=== PATIENT | female | born 1930 | race Caucasian/White ===

== ENCOUNTER 2017-06-17 15:54 | Inpatient (IN) | payer OTHER ==
[~2017-06-17] VITALS: Ht 160 cm; Wt 54.4 kg
[~2017-06-17 15:54] MED LIST: ADVAIR 250-501 EACH INH; ALLERGY MEDICAT25 MG PO; AMLODIPINE BESY10 MG PO; ASPIRIN81 M2 PO; BEANO300 UNIT PO; DAIRY DIGES9000 UNIT PO; FIBER625 MG PO; GABAPENTIN 100100 MG PO; LEVAQUIN 250 M250 MG PO; LIPITOR10 MG PO; METFORMIN HCL500 MG PO; MOBIC15 MG PO; MUCUS RELIEF400 MG PO; NITROGLYCERIN0.4 MG SUBLING; OCUVITE EYE +1 EACH PO; PROAIR RESPICL90 MCG INH; SINGULAIR 10 MG10 M1 PO; SYNTHROID100 MCG PO; TOPROL XL25 MG PO; VASOTEC5 MG PO; VICODIN ES 7.51 EACH PO; ZANTAC 150MG T150 MG PO
[2017-06-17 15:58] VITALS: BP 154/55
[2017-06-17] MEDS ORDERED: ELIQUIS2.5 MG PO (16:02)
[2017-06-17 16:25] LABS: ABSOLUTE BASOPHILS 0.1 thou/uL (0.0-0.2); ABSOLUTE EOSINOPHILS 0.1 thou/uL (0.0-0.7); ABSOLUTE LYMPHOCYTES 0.7 thou/uL (0.8-5.3); ABSOLUTE MONOCYTES 0.4 thou/uL (0.0-1.2); ABSOLUTE NEUTROPHILS 5.8 thou/uL (1.6-8.1); BASOPHILS 0.8 %; EOSINOPHILS 1.7 %; HEMATOCRIT 30.3 % (37.0-47.0); LYMPHOCYTES 10.4 %; MCH 29.6 pg (26.0-34.0); MCV 89.5 fL (80.0-100.0); MONOCYTES 5.3 %; MPV 7.3 fl. (7.2-11.1); NUCLEATED RBCS 0 /100WBC; PLATELET COUNT* 213 thou/uL (150-400); POLYS 81.8 %; RBC 3.39 mil/uL (4.20-5.00); RDW-CV 14.4 % (10.5-14.5); WBC 7.1 thou/uL (4.0-11.0)
[2017-06-17 16:38] LABS: ANION GAP 2 mmol/L (7-16); BUN 20 mg/dL (7-18); CALCIUM 8.5 mg/dL (8.5-10.1); CHLORIDE 96 mmol/L (98-107); CO2 36 mmol/L (21-32); CREATININE 0.8 mg/dL (0.6-1.3); GLUCOSE 123 mg/dL (70-99); POTASSIUM 4.2 mmol/L (3.5-5.1); SODIUM 134 mmol/L (136-145)
[2017-06-17 16:49] LABS: ALBUMIN 3.6 g/dL (3.4-5.0); ALKALINE PHOSPHATASE 45 U/L (46-116); LIPASE 86 U/L (73-393); NT-PRO BRAIN NAT PEPTIDE 3721 pg/mL (<300); SGOT 18 U/L (15-37); SGPT 13 U/L (30-65); TOTAL BILIRUBIN 0.4 mg/dL (<0.1-1.0); TOTAL PROTEIN 6.9 g/dL (6.4-8.2); TROPONIN-I LEVEL <0.06 ng/mL (<0.06)
[2017-06-17 16:50] LABS: INFLUENZA A ANTIGEN None Detected (None Detect); INFLUENZA B ANTIGEN None Detected (None Detect)
[2017-06-17 16:50] LABS: INR 1.1
[2017-06-17 19:40] VITALS: BP 135/46
[2017-06-17 19:44] VITALS: BP 131/41
[2017-06-18] VITALS: BP 118/48
[2017-06-18 04:00] VITALS: BP 114/53
[2017-06-18 09:31] VITALS: BP 135/53
[2017-06-18 12:05] VITALS: BP 130/42
[2017-06-18 15:43] VITALS: BP 136/45
[2017-06-18 19:35] VITALS: BP 136/54
[2017-06-19] VITALS: BP 110/35
[2017-06-19 04:22] VITALS: BP 118/64
[2017-06-19 07:16] LABS: HEMATOCRIT 29.1 % (37.0-47.0); HEMOGLOBIN 9.7 gm/dL (12.0-15.0); MCH 29.9 pg (26.0-34.0); MCHC 33.5 g/dL (28.0-37.0); MCV 89.5 fL (80.0-100.0); MPV 7.3 fl. (7.2-11.1); NUCLEATED RBCS 0 /100WBC; PLATELET COUNT* 204 thou/uL (150-400); RBC 3.26 mil/uL (4.20-5.00); RDW-CV 14.1 % (10.5-14.5); WBC 7.7 thou/uL (4.0-11.0)
[2017-06-19 07:34] LABS: ABSOLUTE LYMPHOCYTES 0.7 thou/uL (0.8-5.3); ABSOLUTE MONOCYTES 0.1 thou/uL (0.0-1.2); ABSOLUTE NEUTROPHILS 6.9 thou/uL (1.6-8.1); CALCIUM 8.5 mg/dL (8.5-10.1); CREATININE 0.8 mg/dL (0.6-1.3); PLATELET ESTIMATE ADEQUATE; POTASSIUM 4.3 mmol/L (3.5-5.1)
[2017-06-19 08:00] VITALS: BP 142/72
[2017-06-19] MEDS ORDERED: PREDNISONE 10 M10 MG PO (09:15)
[2017-06-19 11:36] VITALS: BP 182/65
[2017-06-19 14:20] VITALS: BP 182/65
[2017-07-16] MEDS ORDERED: PREDNISONE 10 M10 MG PO (14:37)
== END 2017-06-19 15:19 | disposition home or self-care (01) | DRG 190 ==
LOC: M.ERS 15:54 → M.2W 17:16 → M.TBA-ER 17:16 → M.2W 19:43
PROVIDERS: Emergency Medicine; ADMIT Internal Medicine
DX: J44.1 Chronic obstructive pulmonary disease with (acute) exacerbation (principal); J12.9 Viral pneumonia, unspecified; J96.10 Chronic respiratory failure, unspecified whether with hypoxia or hypercapnia; E11.9 Type 2 diabetes mellitus without complications; E78.00 Pure hypercholesterolemia, unspecified; I10 Essential (primary) hypertension; K21.9 Gastro-esophageal reflux disease without esophagitis; I48.91 Unspecified atrial fibrillation; Z88.0 Allergy status to penicillin; Z88.2 Allergy status to sulfonamides; Z79.82 Long term (current) use of aspirin; Z79.899 Other long term (current) drug therapy; Z87.891 Personal history of nicotine dependence

== ENCOUNTER 2017-07-03 10:24 | Inpatient (IN) | payer OTHER ==
[~2017-07-03] VITALS: Ht 160 cm; Wt 56.7 kg
[~2017-07-03 10:24] MED LIST changes: +ELIQUIS2.5 MG PO; +PREDNISONE 10 M10 MG PO
[2017-07-03 10:43] VITALS: BP 153/46
[2017-07-03 10:46] LABS: HEMATOCRIT 29.3 % (37.0-47.0); HEMOGLOBIN 9.9 gm/dL (12.0-15.0); MCH 30.4 pg (26.0-34.0); MCHC 33.8 g/dL (28.0-37.0); MPV 6.9 fl. (7.2-11.1); NUCLEATED RBCS 0 /100WBC; PLATELET COUNT* 247 thou/uL (150-400); RBC 3.25 mil/uL (4.20-5.00); RDW-CV 14.9 % (10.5-14.5); WBC 14.1 thou/uL (4.0-11.0)
[2017-07-03 10:55] LABS: ANION GAP 5 mmol/L (7-16); BUN 23 mg/dL (7-18); CALCIUM 8.6 mg/dL (8.5-10.1); CHLORIDE 90 mmol/L (98-107); CO2 37 mmol/L (21-32); CREATININE 0.9 mg/dL (0.6-1.3); GLUCOSE 120 mg/dL (70-99); POTASSIUM 4.2 mmol/L (3.5-5.1); SODIUM 132 mmol/L (136-145)
[2017-07-03 11:03] LABS: APTT 30.6 Seconds (25.0-31.3); INR 1.1; PROTIME 10.7 Seconds (9.20-11.50)
[2017-07-03 11:06] LABS: ALBUMIN 3.3 g/dL (3.4-5.0); ALKALINE PHOSPHATASE 53 U/L (46-116); NT-PRO BRAIN NAT PEPTIDE 7362 pg/mL (<300); SGOT 16 U/L (15-37); SGPT 20 U/L (30-65); TOTAL BILIRUBIN 0.6 mg/dL (<0.1-1.0); TOTAL PROTEIN 6.8 g/dL (6.4-8.2); TROPONIN-I LEVEL <0.06 ng/mL (<0.06)
[2017-07-03 11:20] LABS: ABSOLUTE BASOPHILS 0.1 thou/uL (0.0-0.2); ABSOLUTE LYMPHOCYTES 0.8 thou/uL (0.8-5.3); ABSOLUTE MONOCYTES 0.7 thou/uL (0.0-1.2); ABSOLUTE NEUTROPHILS 12.4 thou/uL (1.6-8.1); PLATELET ESTIMATE ADEQUATE
[2017-07-03] MEDS ORDERED: HYDRALAZINE 10M10 MG PO (11:30)
[2017-07-03] MEDS ORDERED: PACERONE 200 M200 M1 PO (11:30)
[2017-07-03 11:41] LABS: INFLUENZA A ANTIGEN None Detected (None Detect); INFLUENZA B ANTIGEN None Detected (None Detect)
[2017-07-03 12:10] VITALS: BP 142/51
[2017-07-03 12:30] VITALS: BP 156/52
--- NOTE | 2017-07-03 13:41 | NUR ---
PT ADMITTED TO ROOM 229 AROUND 1230. REFER TO ASSESSMENT. FAMILY AT BEDSIDE. PT REQUIRING 6L OXYGEN/NC TO MAINTAIN SATS AT 92%. PT WEARS 2L AT HOME. TELE SB WITH RATE IN THE 40'S. IT'S REPORTED THIS IS CLOSE TO BASELINE FOR PT. CARDIOLOGY CONSULTED. NO OTHER CONERNS AT THIS TIME. CLWR. WCTM.
[2017-07-03 15:33] VITALS: BP 139/47
--- NOTE | 2017-07-03 16:10 | EKG ---
[place] [address] ELECTROCARDIOGRAM REPORT Name: AMNA DUENAS Room: [address] ADM IN .R.#: [id number] Admission: 07/03/17 Attend Phys: Nkechi Jerez Discharge: Date of : [birth year] Report #: [id number] THIS REPORT FOR: //name// [facility] ED Test Date: 2017-07-03 Test Time: 10:48:53 Pat Name: AMNA DUENAS Department: Room: [facility] Gender: F Scale Agent: STUDENT : 1930 Requested By: Hua Ambrocio Order Number: [id number] MD: Prateek Mckeon Measurements Intervals [place] Rate: 43 P: -40 MD: 212 QRS: -18 QRSD: 109 T: 82 QT: 507 QTc: 429 Interpretive Statements Sinus bradycardia Borderline left axis deviation septal infarct, age indeterminate Compared to ECG 06/17/2017 16:27:30 no change Electronically Signed On 07-03-2017 16:10:31 INCLUSION SPECIAL EDUCATION TEACHER by Prateek Mckeon [email or web address] <ELECTRONICALLY SIGNED> By: Prateek Mckeon MD, FAC 07/03/17 1610 1048 1048 Prateek Mckeon MD, [facility] /EPI
--- NOTE | 2017-07-03 17:45 | NUR ---
PT NOT PROGRESSING TOWARDS GOALS. NEW ADMIT. ABLE TO TITRATE OXYGEN TO 4L TO MAINTAIN SATS >92%. BIPAP AT BEDSIDE IF NEEDED WHILE RESTING. PT GIVEN IV LASIX THIS EVENING. TELE CONTINUES SB. NO OTHER CONCERNS AT THIS TIME. CLWR. WCTM.
[2017-07-03 20:00] VITALS: BP 146/48
[2017-07-04] VITALS: BP 126/52
--- NOTE | 2017-07-04 02:47 | NUR ---
PT ALERT ORIENTED. PT CALLS OUT FREQUENTLY FOR VARIOUS THINGS. HYDROCODONE GIVEN ONCE. THROAT LOZENGES GIVEN PER PT REQUESTS. UP TO BR WITH STANDBY ASSSIST. TELEMETRY SHOWS SB. O2 AT 4 LITERS NC. WILL CONTINUE TO MONITOR.
[2017-07-04 04:00] VITALS: BP 129/51
[2017-07-04 05:42] LABS: HEMATOCRIT 24.9 % (37.0-47.0); HEMOGLOBIN 8.3 gm/dL (12.0-15.0); MCH 29.7 pg (26.0-34.0); MCHC 33.1 g/dL (28.0-37.0); MCV 89.5 fL (80.0-100.0); MPV 7.1 fl. (7.2-11.1); RBC 2.78 mil/uL (4.20-5.00); RDW-CV 14.9 % (10.5-14.5); WBC 19.9 thou/uL (4.0-11.0)
[2017-07-04 07:21] LABS: CREATININE 0.9 mg/dL (0.6-1.3); MAGNESIUM 1.9 mg/dL (1.8-2.4)
--- NOTE | 2017-07-04 07:36 | CON ---
[address] [address] CONSULTATION Name: AMNA DUENAS Room: [address] IN M.R.#: [id number] Admission: 07/03/17 Attend Phys: Nkechi Jerez Discharge: Date of : [birth year] Report #: [id number] THIS REPORT FOR: //name// CC: Hilario Monterroso MD [facility] Dr. Shaikh Emerita Burgos INDICATION: Shortness of breath and possible heart failure. HISTORY OF PRESENT ILLNESS: The patient is a very pleasant 87-year-old white female who is hospitalized with acute onset shortness of breath. This patient states she has been gradually weakening over the past week. She does have some COPD and was recently put on O2. This morning she woke up short of breath at rest and with activity. She had some unassociated right arm pain that was not worse with activity. Her initial cardiac enzyme was unremarkable. Subsequent cardiac enzymes were unremarkable. EKG shows sinus bradycardia with no significant ST-segment abnormalities. NT-proBNP was elevated consistent with acute heart failure. Chest x-ray suggested possible patchy pneumonia. On laboratory evaluation, the white blood cell count was minimally elevated. She has a cough, but it is not productive. She had pneumonia in March with productive cough. She denies fevers. She is not having nausea or vomiting. She denies orthopnea. She has a history of coronary artery disease with intervention remotely. She had stents in 2006 in the setting of a myocardial infarction. Prior to that, she had had episodes of stenting as well. She has had no recent intervention. Echocardiogram in March of this year showed normal LV systolic function and evidence of diastolic dysfunction. PAST MEDICAL HISTORY: 1. Coronary artery disease with percutaneous coronary intervention on multiple occasions, most recently in 2006. 2. Myocardial infarction in 2006. 3. Carotid vascular disease. 4. COPD. 5. Diabetes. 6. Hypertension. 7. Hyperlipidemia. 8. Hypothyroidism. 9. Subclavian artery stenosis. PAST SURGICAL HISTORY: 1. Cholecystectomy. 2. Nephrolithiasis. 3. [place] [address] CONSULTATION Name: AMNA DUENAS Room: [address]#: [id number] Admission: 07/03/17 Attend Phys: Nkechi Jerez Discharge: Date of : [birth year] Report #: [id number] FAMILY HISTORY: Noncontributory. SOCIAL HISTORY: The patient quit smoking in 1991. She does not drink alcohol. ALLERGIES: PENICILLINS AND SULFA. HOME MEDICATIONS: Albuterol inhaler 2 puffs q.i.d. p.r.n., amiodarone 200 mg b.i.d., amlodipine 10 mg daily, Eliquis 2.5 mg b.i.d., enteric coated aspirin 81 mg daily, atorvastatin 10 mg at bedtime, fiber tablet p.r.n., Benadryl p.r.n., enalapril 20 mg b.i.d., Advair 250/50 one puff b.i.d., gabapentin 100 mg at bedtime, guaifenesin 400 mg p.r.n., Apresoline 10 mg b.i.d. p.r.n., Lactase tablet p.r.n., Synthroid 100 mcg daily, meloxicam ____ mg daily, metformin 500 mg daily, metoprolol succinate 25 mg b.i.d., Singulair 10 mg daily, Ocuvite eye medicine one tablet daily, Nitrostat p.r.n., prednisone 40 mg daily and Zantac 150 mg b.i.d. REVIEW OF SYSTEMS: GENERAL: She denies convulsions, seizures or focal paralysis. She had some mild generalized weakness. RESPIRATORY: She has a cough that is nonproductive. She reports history of COPD. CARDIOVASCULAR: Shortness of breath and orthopnea without paroxysmal nocturnal dyspnea. She denies edema. ENDOCRINE: She has type 2 diabetes mellitus. She has hypothyroidism. GASTROINTESTINAL: No vomiting, melena, hematochezia, jaundice or hepatitis. GENITOURINARY: No dysuria or hematuria. HEMATOLOGIC AND LYMPHATIC: No history of bleeding disorder or cancer. She does have a history of anemia. ALLERGY AND IMMUNOLOGIC: She has medical allergies outlined above. PSYCHIATRIC: No depression or anxiety. 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 SKIN: No recent rashes, hives or chronic skin conditions. EYES: She does wear glasses. She has no acute loss in vision. EARS, NOSE, MOUTH AND THROAT: She denies epistaxis. She does have decreased hearing. PHYSICAL EXAMINATION: VITAL SIGNS: Blood pressure 139/47, pulse 46 and regular. GENERAL: This is a pleasant elderly female in no distress. Mood and affect appropriate. HEENT: The patient's extraocular muscles intact. Mucous membranes are moist. O2 nasal cannula in place. NECK: Examination of the neck shows no jugular venous distention. There are no carotid bruits. CHEST: Examination of the chest reveals occasional rhonchi. Breath sounds [facility] [address] [place] [address] CONSULTATION Name: AMNA DUENAS Room: [address] IN [facility]#: [id number] Admission: 07/03/17 Attend Phys: Nkechi Jerez Discharge: Date of : [birth year] Report #: [id number]. CARDIAC: Exam reveals a regular rhythm, bradycardic without a gallop. There is a soft grade 1/6 systolic ejection murmur. ABDOMEN: Examination of the abdomen reveals normal bowel sounds. The abdomen is soft and nontender. EXTREMITIES: Examination of the extremities shows no edema. Peripheral pulses 1-2+ and palpable. SKIN: Warm and dry. IMAGING: A 12-lead EKG shows sinus bradycardia with no significant ST or T-wave abnormality. LABORATORY EVALUATION: Shows unremarkable cardiac enzymes x 2 sets. NT-proBNP is elevated consistent with heart failure. IMPRESSION AND RECOMMENDATIONS: 1. Acute on chronic diastolic heart failure. Recommend diuresis with IV Lasix. We will follow I's and O's closely and daily labs. 2. Coronary artery disease without significant symptoms to suggest acute coronary syndrome. No adjustments in medications with the exception of discontinuing beta maria dolores secondary to bradycardia. 3. History of paroxysmal atrial fibrillation. We will decrease the amiodarone to 200 mg daily and follow clinically. Continue Eliquis. 4. Hypertension. Blood pressure adequately controlled presently. We will follow clinically. 5. Hyperlipidemia. Continue atorvastatin at current dose. 6. Chronic obstructive pulmonary disease per primary physician. 7. Possible pneumonia per primary. <ELECTRONICALLY SIGNED> By: Evens Fuentes MD, [facility] 07/04/17 0736 1646 [id number] Oaklandedouard Fuentes MD, [facility] /nt
[2017-07-04 08:09] VITALS: BP 148/57
--- NOTE | 2017-07-04 09:42 | NUR ---
ASSUMED CARE OF PT THIS AM AROUND 0715- METER REPAIRER HELPER IN PLACE ORDERED, TRACING SB WITH 1ST DEGREE- UPON ASSESSMENT PT NOTED TO BE RESTING IN BED- PT A&O X3 WITH FORGETFULLNESS NOTED- CONTINENT OF BOWEL AND BLADDER- ASSIST X1 WITH TRANSFERS- EXPIRATORY WHEEZING NOTED, LABORED BREATHING NOTED AT REST- VSS, O2 SAT 94% ON 4L VIA NC-ABDOMEN SOFT/ROUND/NON-TENDER, BS X4 QUADS- LAST BM REPORTED 07/02/17- IV NOTED TO LEFT FA INTACT AND SL- IV ABT GIVEN THIS AM PRESCIBED- 1X DOSE 40MG LASIX GIVEN PRESCIBED THIS AM- BS MONIOTORED INDICATED-PT REPORTS PAIN 09/18 TO BACK POST TRANSFER TO BED- PRN HYDROCODONE GIVEN THIS AM AT 0900- PT REPORTS MEDICATION TO BE EFFECTIVE- CALL LIGHT AND PERSONAL BELONGINGS WITH IN REACH- HOURLY ROUNDS IN PLACE R/T SAFETY/NEEDS- ALL NEEDS MET AT THIS TIME-WCTM
[2017-07-04 11:43] VITALS: BP 135/52
[2017-07-04 15:43] VITALS: BP 140/52
--- NOTE | 2017-07-04 16:32 | NUR ---
MET WITH PT AND GRANDDTR/JENNIFER. JENNIFER STATED THAT PT'S SPOUSE HAS 'DEMENTIA' AND THAT PT'S SON/GREER IS THE DPOA. HE IS ON HIS WAY FROM [place] TO SEE PT. SHE CHECKED WITH HIM AND SAID CM COULD CALL HIM. BRIEFLY TALKED WITH PT SHE WAS ON A BIPAP. DR RICO HAD ASKED THAT CM TALK WITH HER ABOUT HOSPICE. PT OPEN TO THAT DISCUSSION AND AWARE OF WHAT HOSPICE WAS. WANTS HER SON AND SPOUSE HERE FOR FURTHER TALK. PT LIVES WITH SPOUSE AND DTR/ARABELLA. SHE HAS HAD INCREASED PROBLEMS MANAGING THE LAST FEW DAYS. WEARS HOME O2 AND NEB THRU [facility], USES CANE. PT THIN AND FRAIL APPEARING. SHE HAS HAD HH WITH [facility] IN THE PAST. CALLED AND SPOKE WITH SON/GREER [phone]. DISCUSSED POC, HOSPICE EVAL AND POSSIBLE ALTERNATE LIVING SITUATION. HE IS ON HIS WAY HERE FROM [place] AND PLANS TO STAY UNTIL CAN ARRANGE A DIFFERENT LIVING SITUATION FOR BOTH HIS PARENTS. HE IS LOOKING INTO ASSISTED LIVING AND HAS APPT SET UP. DISCUSSED POSSIBLE HOSPICE VISIT WITH PROVIDER AND DISCUSSION, HE IS AVAILABLE TO DO THAT OVER THE WEEKEND, HAD NO PREFERENCE. CALLED AND SET UP TENTATIVE MEETING WITH [facility] TOMORROW AFTERNOON. WILL MEET WITH SON IN HOSPITAL TOMORROW TO CONFIRM A TIMEFRAME AND FOLLOW
--- NOTE | 2017-07-04 17:51 | NUR ---
PT CURRENLTY RESTING IN BED- COMMERCIAL MANAGEMENT ACCOUNTANT IN PLACE ORDERED, TRACING SR- BS MONIOTORED ORDERED-PT UP TO BED SIDE CHAIR WITH MEALS, FAIR PO INTAKE NOTED WITH MEALS THIS SHIFT- SOA NOTED WITH EXERTION- IV NOTED TO RIGHT FA INTACT AND SL- MRSA SWAB COLLECTED AND SENT TO LAB, RESULTS PENDING AT THIS TIME- PULMONARY CONSULT INTIATED PER R/T BLOOD TINGED SPUTUM NOTED- XARELTO ON HOLD- BIPAP EDUCATION GIVEN, PT NOTED TO TAKE SMALL NAP THIS AFTERNOON AND TOLERATED OKAY- PT REPORTS TO TRY LONGER AT HS- PT DENIES ANY C/O PAIN/DISCOMFORT AT THIS TIME- CALL LIGHT AND PERSONAL BELONGINGS WITH IN REACH- ALL NEEDS MET AT THIS TIME-WCTM
[2017-07-04 20:00] VITALS: BP 157/67
[2017-07-05 00:22] VITALS: BP 127/42
[2017-07-05 04:00] VITALS: BP 168/82
--- NOTE | 2017-07-05 04:29 | NUR ---
ASSUMED CARE OF PT AT 1930, NURSING ASSESSMENT COMPLETED AT START OF SHIFT, PT ON TELE MONITOR TRACING SINUS RHYTHM. PT DENIES CHEST PAIN THIS SHIFT, FALL PRECAUTIONS IN PLACE, PT ON 4L O2 AT START OF SHIFT, PT TOLERATED BIPAP FOR APPROX 1 HOUR THIS SHIFT. HOURLY ROUNDING COMPLETED. AT 0400, PT VOICED SOA AFTER GETTING BACK IN BED FROM USING BEDSIDE COMMODE. PT O2 SAT IN LOW 80'S. O2 INCREASED TO 5L NC AND O2 SAT INCREASED TO 92%. PT HOB ELEVATED TO 35 DEGREES. CALL LIGHT WITHIN REACH. NO FALLS THIS SHIFT.
[2017-07-05 05:20] LABS: BE 11.7 mmol/L (-2 to +3); HCO3 37.5 mmol/L (22.0-26.0); pH 7.438 (7.340-7.450)
[2017-07-05 05:23] LABS: PCO2 56.8 mmHg (35.0-45.0)
[2017-07-05 08:04] VITALS: BP 140/73
--- NOTE | 2017-07-05 10:07 | NUR ---
ASSUMED CARE OF PT THIS AM AROUND 0715- MINESWEEPING OFFICER IN PLACE ORDERED, TRACING A-FIB FOR SHORT TIME THIS AM STARTING AROUND 0700, EKG OBTAINED WITH PT NOTED TO BE SR WITH PAC'S- UPON ASSESSMENT PT NOTED TO BE RESTING IN BED, EYES CLOSED- PT A&O X3, WITH FORGETFULLNESS- PT NOTED TO BE ANXIOUS THIS AM- ASSIST X1 WITH TRANSFERS NOTED- COURSE LUNG SOUNDS NOTED WITH WHEEZING- LABORED BREATHING NOTED AT REST- VSS, O2 SAT 96% ON 6L VIA NC- BREATHING TX GIVEN THIS AM PER RT- ABDOMEN SOFT/ROUND/NON-TENDER, BS X4 QUADS- LAST BM REPORTED 07/04/17- SCATTERED BRUISING NOTED- IV NOTED TO RUE INTACT AND SL- IV ABT GIVEN THIS AM PRESCIBED- POOR PO INTAKE NOTED THIS AM WITH BREAKFAST- BS THIS AM NOTED AT 194, METFORMIN RESTARTED AND GIVEN PRESCIBED- ATARAX Q 6 PRN OBTAINED PER AND GIVEN THIS AT 0957 R/T ANXIETY- PRN HYDROCODONE GIVEN THIS AM R/T BACK PAIN- AND GRANDDAUGHTER CHANAENLTY AT BED SIDE VISITING- CALL LIGHT AND PERSONAL BELONGINGS WITH IN REACH- HOURLY ROUNDS IN PLACE R/T SAFETY/NEEDS- ALL NEEDS MET AT THIS TIME-WCTM
--- NOTE | 2017-07-05 11:00 | NUR ---
CONTINUE TO FOLLOW. MET WITH PT'S SON/HERB. UPDATED HIM ON WHEN [facility] COULD MEET TO GIVE HOSPICE INFO VISIT, HE IS IN AGREEMENT. [facility] TO MEET WITH SON AT 330PM TODAY. SON WANTS TO KEEP ALL OPTIONS OPEN, IS IN PROCESS OF GATHERING INFORMATION
[2017-07-05 12:00] VITALS: BP 128/74
--- NOTE | 2017-07-05 12:02 | EKG ---
[place] [address] ELECTROCARDIOGRAM REPORT Name: AMNA DUENAS Room: [address] ADM IN M.R.#: [id number] Admission: 07/03/17 Attend Phys: Nkechi Jerez Discharge: Date of : [birth year] Report #: [id number] THIS REPORT FOR: //name// [facility] Test Date: 2017-07-05 Test Time: 08:12:10 Pat Name: AMNAEMANUEL DUENAS Department: Room: [address] Gender: F Slab Stripper: LAUREN : 1930 Requested By: Jose A Salazar Order Number: [id number] Mati MD: Sammy Barrios Measurements Intervals [place] Rate: 86 P: 5 MA: 189 QRS: -35 QRSD: 113 T: 137 QT: 373 QTc: 446 Interpretive Statements Sinus rhythm Atrial premature complexes in couplets Borderline IVCD with LAD Borderline repolarization abnormality Compared to ECG 07/03/2017 10:48:53 Atrial premature complex(es) now present Sinus bradycardia no longer present Myocardial infarct finding no longer present Electronically Signed On 07-05-2017 12:02:41 PRISON PSYCHIATRIST by Sammy Barrios [email or web address] <ELECTRONICALLY SIGNED> By: Sammy Barrios MD, FACC 07/05/17 1202 1 08 Sammy Barrios MD, FAC /EPI
[2017-07-05 15:30] VITALS: BP 129/74
--- NOTE | 2017-07-05 17:36 | NUR ---
PT CURRENTLY RESTING IN BED, AT BED SIDE VISTING- PATTERN ATTENDANT IN PLACE ORDERED, TRACING SR WITH PAC'S- IV TO RUE INTACT AND SL- VAN TROUGH THIS AM REPORTS LOW AT 13, AND REDOSED PER PHARMACY- VANC GIVEN PRESCIBED- PT C/O PAIN X2 THIS SHIFT TO BACK- PRN HYDROCODONE GIVEN AT 1420- ANXIETY REPORTED X2 THIS SHIFT WITH SECOND DOSE ATARAX GIVEN AT 1635- LASIX 20MG X1 GIVEN PRESCIBED- BS MONITORED PRESCIBED, FAIR PO INTAKE NOTED WITH MEALS- SON HERE AND CONSULTED WITH HOSPICE THIS SHIFT ALONG WITH CM- AWAITING SPUTUM SAMPLE, PT EDUCATED- CALL LIGHT AND PERSOANL BELONGINGS WITH IN REACH- HOURLY ROUNDS IN PLACE R/T SAFETY/NEEDS- ALL NEEDS MET AT THIS TIME-WCTM
[2017-07-06 00:07] VITALS: BP 90/47
[2017-07-06 04:00] VITALS: BP 110/55
[2017-07-06 04:45] LABS: CALCIUM 8.8 mg/dL (8.5-10.1); CREATININE 1.1 mg/dL (0.6-1.3); POTASSIUM 4.5 mmol/L (3.5-5.1)
[2017-07-06 08:08] VITALS: BP 146/61
--- NOTE | 2017-07-06 10:08 | NUR ---
ASSUMED CARE OF PT THIS AM AROUND 0715- ROTO MIXER OPERATOR IN PLACE ORDERED, TRACING SR/SB THIS AM- PT HAS SINCE BEEN CHANGED TO MS STATUS WITH ROTO MIXER OPERATOR D/C'D- UPON ASSESSMENT PT NOTED TO BE RESTING IN BED SIDE CHAIR- PT A&O X4, ANXIOUS AT TIMES- CONTINENT OF BOWEL AND BLADDER, USING BED SIDE COMMODE- EXPIRATORY WHEEZING NOTED, BREATHING TX PER RT- DYSPNEA NOTED ON EXERTION- VSS, O2 SAT 95% ON 3L VAI NC- ABDOMEN SOFT/ROUND/NON-TENDER, BS X4 QUADS- PT REPORTS TO HAVE HAD BM THIS AM- IV NOTED TO JOB LAGOS- IV MEROPENEM D/C'D THIS AM WITH PO LEVOQUIN ADDED AND GIVEN PRESCIBED- BS MONITORED PRESCIBED, CONTROLLED PER METFORMIN- GOOD PO INTAKE NOTED THIS AM- AT SIDE THIS AM- PRN HYDROCODONE GIVEN THIS AM AT 0914 FOR PAIN TO BACK- PT REPORTS MEDICATION TO BE EFFECTIVE- CALL LIGHT AND PERSONAL BELONGINGS WITH IN REACH- HOURLY ROUNDS IN PLACE R/T SAFETY/NEEDS- ALL NEEDS MET AT THIS TIME-WCTM
[2017-07-06 12:05] VITALS: BP 126/54
[2017-07-06 15:47] VITALS: BP 118/45
--- NOTE | 2017-07-06 16:06 | NUR ---
AT 1505 PT REPORTS PAIN 3/10 TO RIGHT SHOULD AND RIGHT MID CHEST- VS 97.8 118/45 57 20- EKG OBTAINED AND PLACED ON CHART- PT GIVEN PRN HYDRODCODONE AND ATARAX AT 1510- UPON REASSESSMENT PT REPORTS MEDICATION TO BE EFFECTIVE, BUT STILL STATES THAT IS PAIN TO AREA- NOTIFED VIA PHONE OF PT C/O AND ASSESSMENT FINDINGS ALONG WITH INTERVENTIONS- NO NEW ORDERS NOTED- CLARIFICATION FOR OKAY RECIVED FOR PT TO BE TRANSFERED TO MS UNIT CARDIAC MONITORING HAS BEEN D/C- REPORT CALLED TO MAVERICK NEGRETE @ 4141, ALL QUESTIONS AND CONCERNS ADDRESSED- PT BELONGINGS TO BE PACKED AND PT TO BE TRANSFERED SHORTLY-WCTM
[2017-07-07 00:09] VITALS: BP 131/86
[2017-07-07 03:57] LABS: CALCIUM 8.2 mg/dL (8.5-10.1); CREATININE 1.2 mg/dL (0.6-1.3); MAGNESIUM 2.1 mg/dL (1.8-2.4); POTASSIUM 4.4 mmol/L (3.5-5.1)
[2017-07-07 04:45] LABS: HEMATOCRIT 24.5 % (37.0-47.0); MCH 29.5 pg (26.0-34.0); MCHC 32.5 g/dL (28.0-37.0); MCV 90.8 fL (80.0-100.0); MPV 7.1 fl. (7.2-11.1); RBC 2.7 mil/uL (4.20-5.00); RDW-CV 15.1 % (10.5-14.5); WBC 11.6 thou/uL (4.0-11.0)
[2017-07-07 08:30] VITALS: BP 149/57
[2017-07-07 12:10] VITALS: BP 120/55
--- NOTE | 2017-07-07 14:24 | NUR ---
ASSUMED CARES OF PT AT 0700. PT IN BED, BED IN LOW AND LOCKED POSITION, FALL PRECAUTIONS IN PLACE. CALL BUTTON AND PERSONAL ITEMS IN PT REACH. PT A&O X4, OFTEN ANXIOUS. HRRR PER AUSCULTATION, VSS ON 3L O2 NC. LUNG SOUNDS DIMINISHED, SHALLOW RESPIRATIONS. BM TODAY. SCATTERED BRUISING, SCARS, SCABS. PT ON PRECAUTIONS FOR MRSA IN NARES. PT HAD ONE EPISODE OF DIARRHEA/BROWN/LOOSE. SBA TO BSC. RIGHT UE IV PATENT TO FLUSH AND IV ABT. PT DNR. SPUTUM NEEDED BUT PT UNABLE TO PRODUCE SAMPLE AT THIS TIME. LEFT LIMB ALERT, REQUEST FOR ORDERS FOR PT AND OT. CARDIOLOGY SIGNED OFF, FOLLOW UP WITH CARDIOLOGY PATIENT CLERICAL ASSISTANT 2-4 WEEKS POST DISCHARGE. PT VERY [place]. ACCU CHECKS AND HOURLY ROUNDING CONTINUE. PT PROGRESSING TOWARDS GOAL, WILL CONTINUE TO MONITOR PT PROGRESS AND STATUS.
[2017-07-07 16:00] VITALS: BP 107/56
--- NOTE | 2017-07-07 17:01 | EKG ---
[place] [address] ELECTROCARDIOGRAM REPORT Name: AMNA DUENAS Room: [address] ADM IN M.R.#: [id number] Admission: 07/03/17 Attend Phys: Nkechi Jerez Discharge: Date of : [birth year] Report #: [id number] THIS REPORT FOR: //name// [facility] Test Date: 2017-07-06 Test Time: 15:10:35 Pat Name: AMNA HENRIQUE Department: Room: [facility] Gender: F Concession Supervisor: : 1930 Requested By: Jose A Salazar Order Number: [id number] Mati MD: Damian Felix Measurements Intervals [place] Rate: 58 P: -52 CT: 155 QRS: -21 QRSD: 105 T: 209 QT: 477 QTc: 469 Interpretive Statements Sinus or ectopic atrial rhythm LVH with secondary repolarization abnormality Anterior Q waves, possibly due to LVH Compared to ECG 07/05/2017 08:12:10 Ectopic atrial rhythm now present Left ventricular hypertrophy now present Q waves now present Sinus rhythm no longer present Atrial premature complex(es) no longer present Electronically Signed On 07-07-2017 17:01:17 GIN OPERATOR by Damian Felix [email or web address] <ELECTRONICALLY SIGNED> By: Damian Felix MD, FAC 07/07/17 1701 1510 1510 Damian Felix MD, [facility] /EPI
--- NOTE | 2017-07-07 17:03 | NUR ---
SW met with pt son Dimitri and discussed dc planning options. Pt son plans to tour [facility] throughout the area and is understanding of the possible need for pt to go to SNF first. Pt/pt family interested in [facility] as a first preference. SW to send referral to [facility] as well as continue to follow to assist with safe dc planning.
--- NOTE | 2017-07-07 17:51 | NUR ---
CRITICAL HIGH VANCOMYCIN LAB RECEIVED AT 1742 FROM [facility]. PHARMACY CONTACTED NURSE AT 1747 TO NOTIFY OF CHANGE OF VANCO DOSE TO BE BROUGHT TO FLOOR FOR ADMINISTRATION. PHYSICIAN NOTIFIED VIA YOU CALL OF VANCOMYCIN LAB AND CHANGE IN DOSE AT 1752.
[2017-07-07 19:45] VITALS: BP 138/59
--- NOTE | 2017-07-07 20:03 | NUR ---
REPORT TO LIFE SKILLS EDUCATOR FOR CONTINUED CARES. PT REMAINS STABLE. VSS ON 2L NC. AFEBRILE. NEW DOSE OF VANCOMYCIN COMPLETED. AT BEDSIDE, SPENDING THE NIGHT WITH PT. CONTACT PRECAUTIONS CONTINUE FOR MRSA IN NARES. HOURLY ROUNDING AND ACCU CHECKS COMPLETED. PT IN BED AT THIS TIME. PT PROGRESSING TOWARDS GOAL. ASSESSMENTS COMPLETED.
--- NOTE | 2017-07-08 05:04 | NUR ---
END SHIFT: PT HAS HAD INCREASE IN STOOLS OVER SHIFT. PT IS ALSO STATING THAT SHE IS "OVERALL JUST NOT FEELING WELL." WEAKNESS NOTED WHEN UP AND MOVING INCLUDING SOA WITH EXURSION. REMAINS ON 2L NC. PAIN RELIEVED WITH PAIN MEDICATION FOR LOW BACK. AT BEDSIDE. VSS. SAFETY PRECAUTIONS IN PLACE. CALL LIGHT IN REACH. PERFORMED HOURLY ROUNDING. WILL CONT TO MONITOR.
[2017-07-08 07:50] VITALS: BP 137/56
--- NOTE | 2017-07-08 09:09 | CON ---
[address] [address] CONSULTATION Name: AMNA DUENAS Room: [address] IN .R.#: [id number] Admission: 07/03/17 Attend Phys: Nkechi Jerez Discharge: Date of : [birth year] Report #: [id number] THIS REPORT FOR: //name// CC: Emerita Burgos DATE OF SERVICE: 07/04/2017 REFERRING PHYSICIAN: Yuliana Burgos M.D. CHIEF COMPLAINT: Short of breath. HISTORY OF PRESENT ILLNESS: The patient is an 87-year-old female who had been a prior smoker, quit several years ago. She has a history of chronic obstructive airways disease. She was recently hospitalized at this institution state for about 2 days before she was discharged. She was admitted on 06/17/2017, discharged on 06/19/2017. Her discharge diagnosis was exacerbation of COPD, pneumonia, elevated troponin level and hypoxemia. The patient states that since being discharged from the hospital, she has not done all that well. She is still having problems with shortness of breath. She has been coughing, bringing up phlegm. Today, she even states that she coughed up some blood. She is denying chest pain, abdominal pain, nausea, vomiting, headache, blurred vision, numbness, tingling or swelling. PAST MEDICAL HISTORY: Significant for chest pain, chronic obstructive airways disease, pneumonia, hypoxemia. ALLERGIES: SHE IS ALLERGIC TO SULFA DRUGS AND CODEINE. She does have additional history of coronary artery disease. She has had stenting placed, gastroesophageal reflux disorder. SOCIAL HISTORY: She is a prior smoker. She is and lives with her . FAMILY HISTORY: Noncontributory for age. REVIEW OF SYSTEMS: System review negative other than what is outlined above. CURRENT MEDICATIONS: Lipitor, aspirin, amiodarone, levothyroxine, vancomycin, guaifenesin, meropenem, DuoNeb aerosol treatments, Solu-Medrol. PHYSICAL EXAMINATION: [place] [address] CONSULTATION Name: AMNA DUENAS Room: [address]#: [id number] Admission: 07/03/17 Attend Phys: Nkechi Jerez Discharge: Date of : [birth year] Report #: [id number] VITAL SIGNS: Blood pressure 135/52, respiratory rate 16, pulse rate 61 and regular, temperature 36.9 degrees. GENERAL APPEARANCE: Awake, alert, oriented. HEAD: Atraumatic. EYES: Pupils are round, equal, reactive. ORAL CAVITY: Moist. No lesions. NECK: No adenopathy. CHEST: Crackles in the bases with scattered rhonchi and a few scattered end expiratory wheezes. CARDIOVASCULAR: Irregular rhythm. ABDOMEN: Soft. EXTREMITIES: Negative for edema. No evidence of clubbing. SKIN: Warm and dry. She has hyperpigmentation of right lower extremity at about the anterior tibial region. No rash effect, otherwise. LYMPHATICS: Negative. Pulses equal. NEUROLOGIC: There are no abnormalities. She is weak, but her strength is diminished. LABORATORY DATA: Influenza A/B screen is negative. Electrolytes: Today, her sodium 133, potassium 4.0, chloride 93, CO2 36, BUN 26, creatinine 0.9. Hemoglobin and hematocrit of 8 and 24. White count 19,900, platelet count 201,000. Chest x-ray reveals bilateral lower lobe infiltrates. ASSESSMENT: 1. Pneumonia. 2. Exacerbation of chronic obstructive pulmonary disease. 3. Chronic hypoxemia. 4. Generalized weakness. 5. Hemoptysis secondary to her bronchial/pulmonary parenchymal irritation/inflammation. PLAN: The patient will continue with antibiotic coverage. Aspiration precautions. Follow up x-ray will be obtained. We will also obtain an arterial blood gas in the a.m. make sure she is adequately oxygenating. If the patient has not been started on mucolytic agents, we will initiate that as well. <ELECTRONICALLY SIGNED> By: Nadya Peguero MD 07/08/17 0909 1514 [id number] Miguel MD /nt
--- NOTE | 2017-07-08 14:41 | NUR ---
RADHA followed up with pt son Herb regarding safe dc planning. Pt son discussed with RADHA and Dr Burgos the possibility of inpatient rehab and if not, then SNF prior to pt moving to [facility]. RADHA called [facility] at pt son request bc son still wants to pursue [facility] even if out of network costs. Florinda with admissions at [facility] explained that if pt is [employer] PPO then they could look into possibilities with minimum of $167.50 per day starting on day 1. Pt son plans to look into specific Human plan bc if it is HMO then they are not able to even consider referral. RADHA reminded pt son that for an alternate plan, pt could be accepted at [facility] and referrals still pending at [place] and could be also sent to [facility] [place] or [facility] [place]. RADHA to continue to follow to assist with safe dc planning.
--- NOTE | 2017-07-08 15:00 | NUR ---
I have reviewed the documentation by KAITLIN CRISOSTOMO from 07/08/17 to 07/08/17 and I concur with it. JOSE PLATT
--- NOTE | 2017-07-08 18:29 | NUR ---
PATIENT A&OX4, FORGETFUL, ON 2L O2 VIA NC. UP WITH ASSISTX1 TO BSC. C/O BACK PAIN, RELIEF WITH MEDICATION. C/O ANXIETY DUE TO BEING IN HOSPITAL, AND HAVING DEMENTIA. PRN ATIVAN GIVEN. NO OTHER CONCERNS AT THIS TIME. APPROPRIATE AND COOPORATIVE WITH CARE.
[2017-07-08 20:00] VITALS: BP 126/53
--- NOTE | 2017-07-09 06:39 | NUR ---
ASSUMED PATIENT CARE AT 1900. MINOR COMPLAINTS OF PAIN NOTED DURING SHIFT. PATIENT ABLE TO MANAGE WITH ORAL MEDICATIONS. ABBLE TO TRANSFER [place] [facility] [place] ZAINAB CASTRO. IV PATENT TO MEDICATION ADMINISTRATION. NOTED SEVERAL AREAS OF BRUISING TO SKIN. REMAINS ON O2, THIS IS A HOME MEDICATION. AT BEDSIDE ON A COT.
[2017-07-09 07:55] VITALS: BP 136/51
[2017-07-09] MEDS ORDERED: LEVAQUIN 750 M750 MG PO (14:45)
[2017-07-09] MEDS ORDERED: XANAX 0.5 MG0.5 MG PO (14:46)
[2017-07-09 15:06] VITALS: BP 133/54
[2017-07-09 15:34] VITALS: BP 133/54
--- NOTE | 2017-07-09 15:35 | NUR ---
SW followed up with SNF facilities and with pt son as pt ready to dc from the hospital today. Pt son was touring the options and called SW back to provide preference of [facility]. SW called other facilities to let them know of pt/family choice of facility. 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 SW faxed final orders/med list to [facility].
[2017-07-09 16:01] VITALS: BP 133/54
--- NOTE | 2017-07-09 16:57 | NUR ---
PATIENT A&OX4, ON 2L O2 VIA NC, IV RIGHT UPPER ARM. IV D/C, CATHETER FULLY INTACT. UP WITH ASSISTX1 WITH WALKER AND GAITBELT. C/O LOWER BACK PAIN, CHRONIC, RATING IT AT A LOW 2, DENIES NEEDING ANY PAIN MEDCATION. PATIENT D/C TO [facility], CALLED GAVE REPORT, SPOKE WITH ONUR. VERBALIZES UNDERSTANDING, NO FURTHER QUESTIONS AT THIS TIME. APPROPRIATE AND COOPORATIVE WITH CARE. PATIENT LEFT UNIT AT 1650 VIA W/C WITH TRANSPORTER AND FAMILY. ALL BELONGINGS TAKEN WITH PATIENT, NOTHING LEFT BEHIND.
[2017-07-16] MEDS ORDERED: PREDNISONE 10 M10 MG PO (14:37)
== END 2017-07-09 16:50 | DRG 177 ==
LOC: M.ERS 10:24 → M.TBA-ER 11:25 → M.2W 11:25 → M.3W 07-06 16:51
PROVIDERS: Emergency Medicine Emergency Medical Services; Internal Medicine; Internal Medicine Cardiovascular Disease; Internal Medicine Pulmonary Disease; ADMIT Internal Medicine
DX: J15.212 Pneumonia due to Methicillin resistant Staphylococcus aureus (principal); I50.43 Acute on chronic combined systolic (congestive) and diastolic (congestive) heart failure; J96.21 Acute and chronic respiratory failure with hypoxia; J44.1 Chronic obstructive pulmonary disease with (acute) exacerbation; E87.0 Hyperosmolality and hypernatremia; E44.0 Moderate protein-calorie malnutrition; I25.10 Atherosclerotic heart disease of native coronary artery without angina pectoris; I48.0 Paroxysmal atrial fibrillation; K21.9 Gastro-esophageal reflux disease without esophagitis; E78.00 Pure hypercholesterolemia, unspecified; I11.0 Hypertensive heart disease with heart failure; Z66 Do not resuscitate; E11.9 Type 2 diabetes mellitus without complications; E78.5 Hyperlipidemia, unspecified; E03.9 Hypothyroidism, unspecified; Z90.49 Acquired absence of other specified parts of digestive tract; Z98.42 Cataract extraction status, left eye; Z98.41 Cataract extraction status, right eye; Z87.891 Personal history of nicotine dependence; Z88.0 Allergy status to penicillin; I25.2 Old myocardial infarction; Z98.61 Coronary angioplasty status; Z88.2 Allergy status to sulfonamides; Z79.899 Other long term (current) drug therapy; Z79.82 Long term (current) use of aspirin

== ENCOUNTER 2017-07-17 14:15 | Inpatient (IN) | payer OTHER ==
[~2017-07-17] VITALS: Ht 160 cm; Wt 64.0 kg
[~2017-07-17 14:15] MED LIST changes: +HYDRALAZINE 10M10 MG PO; +LEVAQUIN 750 M750 MG PO; +PACERONE 200 M200 M1 PO; +XANAX 0.5 MG0.5 MG PO
[2017-07-17 14:17] VITALS: BP 124/45
[2017-07-17] MEDS ORDERED: ZANTAC 150MG T150 MG PO (14:34)
[2017-07-17] MEDS ORDERED: PREDNISONE 10 M10 MG PO (14:38)
[2017-07-17 14:39] LABS: HEMATOCRIT 27.1 % (37.0-47.0); HEMOGLOBIN 8.8 gm/dL (12.0-15.0); MCH 29.9 pg (26.0-34.0); MCHC 32.4 g/dL (28.0-37.0); MCV 92.3 fL (80.0-100.0); MPV 6.7 fl. (7.2-11.1); NUCLEATED RBCS 0 /100WBC; PLATELET COUNT* 229 thou/uL (150-400); RBC 2.93 mil/uL (4.20-5.00); RDW-CV 16.2 % (10.5-14.5); WBC 15.9 thou/uL (4.0-11.0)
[2017-07-17 14:48] LABS: ANION GAP 3 mmol/L (7-16); BUN 48 mg/dL (7-18); CALCIUM 7.8 mg/dL (8.5-10.1); CHLORIDE 102 mmol/L (98-107); CO2 34 mmol/L (21-32); CREATININE 1.4 mg/dL (0.6-1.3); GLUCOSE 173 mg/dL (70-99); POTASSIUM 5.6 mmol/L (3.5-5.1); SODIUM 139 mmol/L (136-145)
[2017-07-17 14:56] LABS: ABSOLUTE LYMPHOCYTES 0.2 thou/uL (0.8-5.3); ABSOLUTE MONOCYTES 0.2 thou/uL (0.0-1.2); ABSOLUTE NEUTROPHILS 15.6 thou/uL (1.6-8.1); PLATELET ESTIMATE ADEQUATE
[2017-07-17 14:59] LABS: ALBUMIN 2.6 g/dL (3.4-5.0); ALKALINE PHOSPHATASE 49 U/L (46-116); LIPASE 179 U/L (73-393); MAGNESIUM 2.7 mg/dL (1.8-2.4); NT-PRO BRAIN NAT PEPTIDE 3920 pg/mL (<300); SGOT 12 U/L (15-37); SGPT 11 U/L (30-65); TOTAL BILIRUBIN 0.3 mg/dL (<0.1-1.0); TOTAL PROTEIN 5.3 g/dL (6.4-8.2); TROPONIN-I LEVEL <0.06 ng/mL (<0.06)
[2017-07-17 16:00] LABS: URINE BILIRUBIN NEGATIVE (Negative); URINE BLOOD 2+ (Negative); URINE COLOR YELLOW; URINE GLUCOSE-RANDOM NEGATIVE (Negative); URINE KETONES NEGATIVE (Negative); URINE NITRITE-REFLEX NEGATIVE (Negative); URINE PROTEIN 1+ (Negative); URINE SPECIFIC GRAVITY 1.025 (1.005-1.030); URINE UROBILINOGEN 0.2 E.U./dl (0.2-1.0)
[2017-07-17 16:01] LABS: URINE LEUKOCYTES-REFLEX 3+ (Negative)
[2017-07-17 16:02] LABS: URINE CLARITY HAZY
[2017-07-17 16:09] LABS: BACTERIA-REFLEX >30 Many /HPF (None Seen); CASTS None Seen /LPF (None Seen); CRYSTALS None Seen /LPF (None Seen); SQUAMOUS 0-3 Few /LPF (0-3); URINE RBC >20 Many /HPF (0-2); URINE WBC-REFLEX >25 Many /HPF (0-5)
--- NOTE | 2017-07-17 16:37 | EKG ---
[place] [address] ELECTROCARDIOGRAM REPORT Name: AMNA DUENAS Room: [place] [address] ADM IN .R.#: [id number] Admission: 07/17/17 Attend Phys: Nkechi Jerez Discharge: Date of : [birth year] Report #: [id number] THIS REPORT FOR: //name// [facility] ED Test Date: 2017-07-17 Test Time: 14:19:40 Pat Name: AMNA DUENAS Department: Room: [facility] Gender: F Switch Technician: TDM : 1930 Requested By: Hua Ambrocio Order Number: [id number] MD: Evens Fuentes Measurements Intervals [place] Rate: 40 P: -17 TN: 229 QRS: -15 QRSD: 103 T: 16 QT: 483 QTc: 394 Interpretive Statements Sinus bradycardia Borderline prolonged TN interval Borderline left axis deviation Compared to ECG 07/06/2017 15:10:35 Ectopic atrial rhythm no longer present Left ventricular hypertrophy no longer present Early repolarization no longer present Q waves no longer present Electronically Signed On 07-17-2017 16:37:38 LITHOGRAPHED PLATE INSPECTOR by Evens Fuentes [email or web address] <ELECTRONICALLY SIGNED> By: Evens Fuentes MD, FACC 07/17/17 1637 1419 1419 Evens Fuentes MD, FAC /EPI
[2017-07-17 16:50] VITALS: BP 105/37
[2017-07-17 17:42] VITALS: BP 100/42
[2017-07-17 20:00] VITALS: BP 115/37; BP 126/61
[2017-07-17 22:00] VITALS: BP 115/37
[2017-07-18] VITALS (10 sets, daily range): BP systolic 95–126; BP diastolic 31–64
--- NOTE | 2017-07-18 06:39 | NUR ---
PATIENT PROGRESSING TOWARDS GOALS. BP, RR, O2, WNL. NO ACUTE HEMODYNAMIC CHANGES OVER NIGHT. PT VOIDS PER BEDPAN. WANTS TO BE ABLE TO USE THE COMMODE. NO VOICED CONCERNS AT THIS TIME. PT COMFORTABLE IN BED. CALL LIGHT IN PLACE. FALL PRECAUTIONS IN PLACE, RECIEVED Q2H TURNS. WILL CONTINUE TO MONITOR.
--- NOTE | 2017-07-18 08:49 | NUR ---
PATIENT IS DIABETIC, REFUSES BLOOD SUGAR BEFORE MEALS.
--- NOTE | 2017-07-18 08:51 | CON ---
[address] [address] CONSULTATION Name: AMNA DUENAS Room: [address] IN M.R.#: [id number] Admission: 07/17/17 Attend Phys: Nkechi Jerez Discharge: Date of : [birth year] Report #: [id number] THIS REPORT FOR: //name// CC: Hilario Monterroso MD [facility] Dr. Shaikh Emerita Burgos TYPE OF REPORT: Cardiology consultation. INDICATION: Bradycardia and weakness. HISTORY OF PRESENT ILLNESS: The patient is a very pleasant 87-year-old white female who was recently hospitalized with pneumonia. After discharge, [facility]. She has been doing well with physical therapy until today when she complained of some weakness. She was noted to be bradycardiac and possibly hypoxic. She was transferred back to the Emergency Room here at [facility] for further evaluation. On arrival, her heart rate is noted to be in the upper 30s to low 40s. She has sinus bradycardia on telemetry. She is presently on amiodarone for rhythm control as well as metoprolol. She has lightheadedness and dizziness but denies any chest pain. She has some mild shortness of breath, but no orthopnea or paroxysmal nocturnal dyspnea. PAST MEDICAL HISTORY: 1. Coronary artery disease with percutaneous coronary intervention on multiple occasions, most recently in 2006. 2. Myocardial infarction in 2006. 3. Carotid vascular disease. 4. COPD. 5. Diabetes. 6. Hypertension. 7. Hyperlipidemia. 8. Hypothyroidism. 9. Subclavian artery stenosis. 10. Recent pneumonia. PAST SURGICAL HISTORY: 1. Cholecystectomy. 2. Nephrolithiasis. 3. Bilateral cataract surgery. FAMILY HISTORY: Noncontributory. SOCIAL HISTORY: The patient quit smoking in 1991. She does not drink alcohol. ALLERGIES: [place] [address] CONSULTATION Name: MUKUNDSANDRAAMNA Room: [address]#: [id number] Admission: 07/17/17 Attend Phys: Nkechi Jerez Discharge: Date of : [birth year] Report #: [id number] CURRENT MEDICATIONS: Albuterol 2 puffs q.i.d. p.r.n., iaoip-p-jirhqpcsipyns 2 tablets q.a.c. p.r.n., alprazolam 0.5 mg b.i.d. p.r.n., amiodarone 200 mg b.i.d., amlodipine 10 mg daily, enteric coated aspirin 81 mg daily, atorvastatin 10 mg at bedtime, fiber capsules p.r.n., Benadryl 25 mg daily p.r.n., enalapril 20 mg b.i.d., Advair 250/50 one puff b.i.d., gabapentin 100 mg at bedtime, guaifenesin 400 mg q. 4 hours p.r.n., hydralazine 10 mg b.i.d. p.r.n., Vicodin 7.5/300 q. 6 hours p.r.n., lactase 9000 units daily p.r.n., Levaquin 750 mg every other day, Synthroid 0.1 mg daily, Meloxicam 15 mg daily, metformin 500 mg daily, metoprolol succinate 25 mg b.i.d., Singulair 10 mg daily, Ocuvite eye medicine tablet 1 tablet daily, Nitrostat p.r.n., prednisone 10 mg daily and Zantac 150 mg b.i.d. PHYSICAL EXAMINATION: VITAL SIGNS: Blood pressure 124/45, pulse 40 and regular. GENERAL: This is an elderly white female who does not appear to be in distress. HEENT: The patient is wearing glasses. Extraocular muscles intact. Mucous membranes are moist. NECK: Shows no jugular venous distention. I do not appreciate carotid bruit. CHEST: Reveals clear lung velasco without wheezes or rales. CARDIOVASCULAR: Reveals a bradycardic rate with a regular rhythm. I do not appreciate gallop. She has a grade 1/6 systolic ejection murmur. ABDOMEN: Reveals normal bowel sounds. The abdomen is soft and nontender. EXTREMITIES: Both lower extremities to be wrapped. She has 1-2+ edema above the wraps into the thighs. SKIN: Warm and dry. RADIOLOGICAL DATA: A 12-lead EKG shows sinus bradycardia without acute ST or T-wave abnormalities. Chest x-ray shows clearing lung velasco with mild left hemidiaphragmatic elevation. LABORATORY DATA: Labs are reviewed. Troponin less than 0.06. NT-pro-BNP 3920. IMPRESSION AND RECOMMENDATIONS: 1. Sinus bradycardia. Discontinue metoprolol. Hold amiodarone. Resume amiodarone 200 mg daily when pulse rate improves. 2. Coronary artery disease, presently stable. She is having no sign or symptom to suggest angina or acute coronary syndrome. We will follow clinically. 3. History of paroxysmal atrial fibrillation, presently in sinus rhythm. We will continue Eliquis. 4. Hyperlipidemia. Continue atorvastatin at current dose. 5. Chronic obstructive pulmonary disease per primary physician. <ELECTRONICALLY SIGNED> By: Evens Fuentes MD, [facility] 07/18/17 0851 1618 [facility]San[facility] Medical Centerrosangela Fuentes MD, SULMA /nt
[2017-07-18 09:54] LABS: ABSOLUTE LYMPHOCYTES 0.4 thou/uL (0.8-5.3); ABSOLUTE MONOCYTES 0.8 thou/uL (0.0-1.2); ABSOLUTE NEUTROPHILS 14.7 thou/uL (1.6-8.1); BASOPHILS 0.3 %; EOSINOPHILS 0.1 %; HEMATOCRIT 22.9 % (37.0-47.0); HEMOGLOBIN 7.4 gm/dL (12.0-15.0); LYMPHOCYTES 2.8 %; MCH 29.7 pg (26.0-34.0); MCHC 32.4 g/dL (28.0-37.0); MCV 91.7 fL (80.0-100.0); MONOCYTES 4.9 %; MPV 7.1 fl. (7.2-11.1); NUCLEATED RBCS 0 /100WBC; PLATELET COUNT* 180 thou/uL (150-400); POLYS 91.9 %; RDW-CV 16.2 % (10.5-14.5)
[2017-07-18 09:57] LABS: CALCIUM 7.5 mg/dL (8.5-10.1); CREATININE 1.3 mg/dL (0.6-1.3); POTASSIUM 5.5 mmol/L (3.5-5.1)
--- NOTE | 2017-07-18 11:06 | NUR ---
PATIENT IS M/S TELE STATUS.
--- NOTE | 2017-07-18 12:00 | NUR ---
TRIED TO SEE PT X2, SHE WAS BUSY WITH STAFF BOTH TIMES. PT HERE 07/03-07/09 AND DISCHARGED TO [facility]. PRIOR TO THAT SHE WAS LIVING AT HOME WITH HER AND HER DTR. SHE HAD O2 AND NEBULIZER AT HOME FROM [facility]. CALLED [facility] AND SPOKE WITH LUIS. THEY CAN ACCEPT PT BACK OVER THE WEEKEND WITHOUT WAITING ON A NEW AUTH FROM [facility]. IF PT IS DISCHARGED OVER THE WEEKEND, CALL LUIS AT [facility] AT [phone].
--- NOTE | 2017-07-18 12:22 | NUR ---
PATIENT WENT UPSTAIRS TO ROOM 304. SON CALLED AND NOTIFIED OF ROOM, WITH PATIENT WHEN TRANSFERING. REPORT GIVEN TO PAPA, ALL QUESTIONS ANSWERED. ALL BELONGINGS TAKEN WITH PATIENT.
--- NOTE | 2017-07-18 12:25 | NUR ---
PATIENT TRANSFERRED TO ROOM 304 VIA WHEELCHAIR AT THIS TIME. PATINET ON O2 AT 2L/NC. GROUT MACHINE OPERATOR RESUMED, TRACING SINUS DAVID. PATIENT UP IN CHAIR FOR LUNCH. AT BEDSIDE. ORIENTED TO NEW ENVIRONMENT. CALL LIGHT WITHIN REACH. WILL CONTINUE WITH PLAN OF CARE.
--- NOTE | 2017-07-18 18:18 | NUR ---
PT IS ALERT AND ORIENTED X 4. PT IS ON 2 LITERS OF O2 BY NC,. LUNGS ARE DIMINISHED. SINUS BRADYCARDIA ON THE TELE MONITOR. PT HAS A R.AC IV SL. PT IS ON CARB CONTROL DIET, WITH 2G NA.PT HAS EDEMA OF THE LEGS BILATERALLY, WRAPPED WITH GAUZE AND KURLEX. PT IS ON CONTACT PRECAUTIONS FOR MRSA IN THE NARES. FALL RISK PRECAUTIONS IN PLACE. WILL CONTINUE TO MONITOR.
--- NOTE | 2017-07-18 18:42 | NUR ---
I HAVE READ AND REVIEWED THE DOCUMENTATION BY LOWELL SCHROEDER, STUDENT NURSE. I AGREE WITH THE DOCUMENTED INTERVENTIONS AND ASSESSMENTS.
[2017-07-18 21:54] LABS: % SATURATION 11 % (20-39); IRON 30 ug/dL (50-175)
[2017-07-19 03:30] VITALS: BP 116/42
--- NOTE | 2017-07-19 06:52 | NUR ---
PT SLEPT MOST OF SHIFT. ASSESSMENT DOCUMENTED. MEDS GIVEN PER E-JUL. PT REPORTED ANXIETY, DR NOTIFIED, ORDERS RECIEVED. IV PATENT. NO REPORTS OF PAIN OR NAUSEA. WILL CONTINUE WITH PLAN OF CARE.
[2017-07-19 07:40] VITALS: BP 126/44
--- NOTE | 2017-07-19 11:32 | NUR ---
CM SPOKE TO THE PATIENT AND HER SON AND BOTH INFORM THAT THE PLAN IS FOR THE PATIENT TO RETURN TO [facility] AT D/C. CM WILL REMAIN AVAILABLE TO ASSIST AND FOLLOW NEEDED.
[2017-07-19 12:00] VITALS: BP 117/41
[2017-07-19 16:00] VITALS: BP 142/41
--- NOTE | 2017-07-19 16:51 | NUR ---
PATIENT GIVEN PRN HYDROCODONE X 2 FOR BACK PAIN, PATIENT SLEEPING SOON AFTER DOSES GIVEN. IV SL, SCHED ABX INFUSED. CONNER LEG WRAPPINGS REMOVED AND MEPILEX IN PLACE TO RIGHT LEG, LEGS ELEVATED. FAMILY AT BEDSIDE ALL SHIFT. PATIENT UP TO CHAIR FOR MEALS. DOSIER OPERATOR REMAINS IN PLACE, SINUS DAVID ALL SHIFT.
[2017-07-19 20:00] VITALS: BP 132/51
[2017-07-20] VITALS (8 sets, daily range): BP systolic 130–184; BP diastolic 35–75
--- NOTE | 2017-07-20 05:29 | NUR ---
PT SLEPT AT INTERVALS DURING THE NIGHT, TUMS ORDERED AND GIVEN FOR "STOMACH ACHE" PER PATIENT, WITH RELIEF. PT PLEASANT, ALERT AND ORIENTED, UP TO BSC WITH SBA, REMAINS ON 02 AT 2L/NC, PRN PAIN MED AT HS FOR BACK PAIN, BREATHING TREATMENTS BY RT, CALL LIGHT IN REACH, BED ALARM ON FOR SAFETY, WILL CONTINUE TO MONITOR
--- NOTE | 2017-07-20 16:14 | NUR ---
DR. ANGEL NOTIFIED THIS AM THAT URINE CULTURE SHOWING VRE, ID CONSULTED. IV RESTARTED TO RIGHT FOREARM THIS AM DUE TO LEAKING. IV ABX REMAIN PER ID. PATIENT UP TO BSC TO VOID, STOOL SOFTNER GIVEN TODAY BUT NOT BM NOTED. DR. ANGEL NOTIFIED ABOUT WEEPING OF PATIENTS LEGS, MEPILEX REMAINS TO WOUND AND WOUND CARE CONSULTED. PATIENTS FAMILY AT BEDSIDE. PRN VICODIN GIVEN X 1 THIS SHIFT FOR SHOULDER PAIN. CREDIT COLLECTION ASSOCIATE REMAINS IN PLACE, HR IN THE MID TO HIGH 50'S THIS SHIFT.
--- NOTE | 2017-07-20 18:24 | NUR ---
PATIENT CALLED OUT STATING SHE WAS HAVING PAIN IN HER CHEST. PATIENT RATING RIGHT SIDED PAIN A 6/10 STATING SHE DID FEEL LIKE AN ELEPHANT WAS ON HER CHEST. VITALS OBTAINED DEFER TO CHARTING. EKG DONE PER PROTOCOL. NITRO TAB GIVEN ORDERED. DR. PERRIN NOTIFIED AND ORDERS TO GIVE PATIENT PRN VICODIN AND ORDERS FOR MALOX. VITALS RECHECKED DEFER TO CHARTING AND MEDICATIONS GIVEN. PATIENT ASKING NURSE AT THIS TIME IF ITS OK TO CONTINUE EATING, PATIENT STATING PAIN WAS EASING UP. AWAITING LAB FOR STAT TROPONIN, WILL CONTINUE TO MONITOR.
[2017-07-21 03:31] VITALS: BP 166/54
--- NOTE | 2017-07-21 05:06 | NUR ---
PT SLEPT WELL WITHOUT CO CHEST PAIN OVERNIGHT,TROP LABS ALL NEGATIVE. TELE SB RATE 49 AT TIMES. HS ACCUCHECK 218, NO INSULIN GIVEN. RFA SL. O2 2L. SNOQUALMIE. UP WITH SBA TO BSC TO VOID. BLE ELEVATED ON PILLOWS, WEEPING SEROUS FLUID. REMAINS ON CONTACT ISOLATION FOR MRSA NARES. AM LABS DRAWN. ABLE TO USE CALL LITE AND MAKE NEEDS KNOWN. DNR.
[2017-07-21 06:05] LABS: HEMATOCRIT 21.7 % (37.0-47.0); HEMOGLOBIN 7.2 gm/dL (12.0-15.0); MCHC 33.1 g/dL (28.0-37.0); MCV 90.8 fL (80.0-100.0); RBC 2.4 mil/uL (4.20-5.00); RDW-CV 15.4 % (10.5-14.5); WBC 9.8 thou/uL (4.0-11.0)
[2017-07-21 06:25] LABS: CALCIUM 7.4 mg/dL (8.5-10.1); CREATININE 0.8 mg/dL (0.6-1.3); MAGNESIUM 2.4 mg/dL (1.8-2.4)
[2017-07-21 08:00] VITALS: BP 161/57
--- NOTE | 2017-07-21 14:47 | NUR ---
WOUND CARE NOTE: CONSULT RECEIVED FOR EVAL LE WOUNDS. PATIENT PRESENTS WITH CHRONIC VENOUS STASIS SKIN CHANGES TO BILATERAL LOWER EXTREMITIES. EPIDERMIS IS EXTREMELY FRAGILE. 2+ PITTING EDEMA TO THE RIGHT LEG AND TRACE TO THE LEFT. BOGGY HEELS, BILATERALLY. LOTION APPLIED TO INTACT SKIN. PINPOINT AREA NOTED TO THE POSTERIOR ASPECT OF THE LEFT CALF DRAINING SEROUS FLUID AND AND AREA TO THE MEDIAL LEG, SUPERIOR TO THE MEDIAL MALLEOLUS MEASURING 1.7X1.8X0.2. YELLOW, MOIST, WOUND BED. APPLIED OPTIFOAM AG TO BOTH OPEN AREAS. SECURED WITH KERLIX AND ALTAF FOR SLIGHT COMPRESSION. WAS ASKED TO LOOK AT PATIENT'S COCCYX WELL. AREA WITH WHAT APPEARS TO BE A CANDIDIA INFECTION EXTENDING NABILA-ANALLY ANTERIORLY TOWARDS THE PERINEUM. AREA WAS CLEANSED AND APPLIED BARRIER OINTMENT. EDUCATED PATIENT AND FAMILY IN ROOM ON IMPORTANCE OF KEEPING HEELS OFF BED, COMMUNICATED UNDERSTANDING AND PLACED 2 PILLOWS UNDER LEGS AND OFFLOADED HEELS OFF BED. EDUCATED ON FINDINGS TO COCCYX, COMMUNICATED UNDERSTANIDNG. EDUCATED ON COMPRESSION/DRESSING SELECTION FOR LEGS, COMMUNICATED UNDERSTANDING. RECOMMEND OFFLOAD BILATERAL HEELS TURN Q2 HOURS ANTIFUNGAL OINTMENT TO NABILA-ANAL AREA/PERINEAL AREA ENCOURAGE GOOD NUTRITION AND HYDRATION DAILY DRESSING CHANGES TO LEGS.
[2017-07-21 16:00] VITALS: BP 154/56
[2017-07-21 16:59] VITALS: BP 145/57; BP 159/75; BP 164/47; BP 171/64
--- NOTE | 2017-07-21 17:00 | NUR ---
WAS PLANNED FOR PT TO DC TO [facility] AFTER RECEIVING BLOOD TRANSFUSION AND CXR RESULTS. [facility] UNABLE TO TAKE PT AFTER 1899. BLOOD TRANSFUSION WILL NOT BE FINISHED BY 1899. DR RICO NOTIFIED. DC HELD UNTIL AM
--- NOTE | 2017-07-21 18:05 | EKG ---
[place] [address] ELECTROCARDIOGRAM REPORT Name: AMNA DUENAS Room: [address] ADM IN M.R.#: [id number] Admission: 07/17/17 Attend Phys: Nkechi Jerez Discharge: Date of : [birth year] Report #: [id number] THIS REPORT FOR: //name// [facility] Test Date: 2017-07-20 Test Time: 17:59:51 Pat Name: AMNA DUENAS Department: Room: [address] Gender: F Habilitation Assistant: MAGDA : 1930 Requested By: Yuliana Burgos Order Number: [id number] Mati MD: Damian Felix Measurements Intervals [place] Rate: 69 P: 23 SD: 196 QRS: -13 QRSD: 109 T: 166 QT: 340 QTc: 365 Interpretive Statements Sinus rhythm Incomplete left bundle branch block Borderline low voltage, extremity leads LVH with secondary repolarization abnormality Compared to ECG 07/17/2017 14:19:40 Left bundle-branch block now present Left ventricular hypertrophy now present Early repolarization now present Sinus bradycardia no longer present Electronically Signed On 07-21-2017 18:04:57 CDT by Damian Felix [email or web address] <ELECTRONICALLY SIGNED> By: Damian Felix MD, FAC 07/21/17 1804 1759 1759 Damian Felix MD, FACC /EPI
--- NOTE | 2017-07-21 18:25 | NUR ---
PT RESTING IN BED THROUGHOUT SHIFT. UP IN CHAIR FOR MEALS. FAMILY AT BS AND UPDATED ON PLAN OF CARE. SBRADY ON MONITOR. PT RECEIVING BLOOD TRANSFUSION THIS EVENING. VOIDING WELL,GOOD APPETITE. PLAN TO DC TO [facility] IN AM
[2017-07-21 23:49] VITALS: BP 139/50
--- NOTE | 2017-07-22 06:17 | NUR ---
PT SLEPT WELL FOR A FEW HOURS OVERNIGHT, PRN XANAX AND HYDROCODONE GIVEN THIS SHIFT WITH GOOD RESULTS. O2 2L NC, SPARKS. RECEIVED 1 UNIT PRBC THAT COMPLETED AT START OF SHIFT LAST NIGHT, PT TOLERATED WITHOUT S/SX ADVERSE REACTION. BLE DRSG CDI, LEGS ELEVATED ON PILLOWS. RFA SL, ABX GIVEN ORDERED. NO LABS THIS MORNING. HS ACCUCHECK 264, PT SNACKING ON PEANUT BUTTER AND CRACKERS SEVERAL TIMES OVERNIGHT. TELE SR, SB. CHUATHBALUK. DNR. ANTICIPATE DISCHARGE TO [facility] TODAY. REMAINS ON CONTACT ISOLATION FOR MRSA NARES, VRE URINE. ABLE TO USE CALL LITE AND MAKE NEEDS KNOWN.
[2017-07-22 09:00] VITALS: BP 171/63
[2017-07-22] MEDS ORDERED: PACERONE 200 M200 M1 PO (11:56)
[2017-07-22] MEDS ORDERED: CEFUROXIME500 MG PO (11:57)
[2017-07-22 12:00] VITALS: BP 158/56
[2017-07-22 12:02] VITALS: BP 171/63
[2017-07-22] MEDS ORDERED: MIRALAX17 GM PO (12:12)
[2017-07-22] MEDS ORDERED: XANAX 0.25 MG0.25 MG PO (13:10)
[2017-07-22] MEDS ORDERED: NORCO 5-325 TA1 EACH PO (13:11)
[2017-07-22] MEDS ORDERED: PREDNISONE 20 M20 M1 PO (13:13)
--- NOTE | 2017-07-22 14:42 | NUR ---
REPORT CALLED TO AVA AT [facility]. IV AND AIR DRIER REMOVED. PATIENT'S DRESSING CHANGES COMPLETED TO LOWER LEGS PRIOR DISCHARGE. PATIENT DISCHARGED VIA WHEELCHAIR VAN AT 1425. FAMILY ACCOMPANIED OFF UNIT WITH FAMILY.
--- NOTE | 2017-07-22 14:52 | NUR ---
CM SPOKE TO THE RN IN-CHARGE OF THE PATIENT AND SHE INFORMS THAT THE PATIENT IS READY TO D/C TO [facility]. CM CONTACTED LUIS TO INFORM OF THIS AND SHE IS IN AGREEMENT AND SETUP TRANSPORTATION FOR 1430. CM INFORMED THE PATIENT AND FAMILY OF TIME OF TRANSPORT. CM INFORMED THE RN IN-CHARGE OF THE PATIENT OF TIME OF TRANSPORT AND WHERE TO CALL REPORT. CM WILL REMAIN AVAILABLE TO ASSIST AND FOLLOW NEEDED.
--- NOTE | 2017-08-09 09:35 | H ---
[place] [address] HISTORY AND PHYSICAL Name: AMNA ARROYO Room: [address]#: [id number] Admission: 07/17/17 Attend Phys: Nkechi Jerez Discharge: 07/22/17 Date of : [birth year] Report #: [id number] THIS REPORT FOR: //name// CC: Emerita Burgos DATE OF SERVICE: 07/20/2017 CONSULTATION: Infectious Diseases. HISTORY OF PRESENT ILLNESS: Ms Arroyo is an 87-year-old patient admitted to [facility] on 07/17/2017 because of a 2-day history of increased dyspnea on exertion and at rest and chest pain. The patient was noted to have a pulse as low as 39, with low oxygen saturation. The patient had been hospitalized at [facility] from 07/03/2017 through 07/09/2017 for pneumonia. She was recommended to discharge on hospice, but the family wanted to continue aggressive care. She was on Levaquin at the detention 500 mg q. 48 hours and her last dose, I believe, was 07/15/2017. She comes into the ER, 07/17/2017, with respiratory complaints. Infectious Disease consultation was requested because of recurring pneumonia. PAST MEDICAL HISTORY: Includes diabetes with hypertension and hyperlipidemia. The patient has coronary artery disease and has had angioplasty. She has atrial fibrillation and bradycardia. Other diagnoses include COPD, diverticulitis and hypothyroidism. ALLERGIES: THE PATIENT NOTES ALLERGIES TO PENICILLIN AND SULFA DRUGS. MEDICATION RECONCILIATION: The patient's current medication includes docusate 100 mg daily, calcium carbonate 500 mg q.i.d., iron 150 mg p.o. daily, alprazolam 0.25 mg p.o. q.6h. p.r.n., prednisone 20 mg p.o. daily, aspirin 81 mg p.o. daily, L-thyroxine 0.1 mg p.o. daily, DuoNebs 3 mL q.i.d. inhalation, budesonide 0.5 mg inhalation b.i.d., cefepime 1 gram IV b.i.d., hydrocodone 5 mg with acetaminophen q.3h. p.o. p.r.n. pain, atorvastatin 10 mg at bedtime, nitroglycerin 0.4 mg sublingual q. 5 minutes p.r.n. chest pain, hydralazine 10 mg p.o. b.i.d. hypertension and nitrofurantoin monohydrate 100 mg p.o. b.i.d. FAMILY HISTORY: Noncontributory. SOCIAL HISTORY: The patient is . Her hope is that she will be able to rehabilitate at the detention to a level where she could go home to her . No history of tobacco, alcohol or drugs. REVIEW OF SYSTEMS: GENERAL: The patient is not complaining of fevers, chills or sweats. She does [place] [address] HISTORY AND PHYSICAL Name: MUKUNDJHONNY FLORESEMANUEL Rachel Room: [address]#: [id number] Admission: 07/17/17 Attend Phys: Nkechi Jerez Discharge: 07/22/17 Date of : [birth year] Report #: [id number] ENT: The patient denies headache, sinus congestion, sore throat or trouble swallowing. MENTAL STATUS: Sharp and at baseline. CHEST: The patient denies cough, but does have the shortness of breath, which has improved since coming to the hospital. She has had no further chest pain. The patient denies any syncope or palpitations. No angina. GASTROINTESTINAL: The patient denies nausea, vomiting, diarrhea or constipation. GENITOURINARY: The patient denies urinary complaints, but has a Palacios catheter in place because of frequent urination and difficulty getting to the commode. EXTREMITIES: The patient does not complain of pain in her extremities. PHYSICAL EXAMINATION: GENERAL: On examination, the patient appears her stated age, alert, oriented, comfortable, not in any distress. VITAL SIGNS: Normal. The patient is afebrile. SKIN: Shows no rash, lesion or exanthem. ENT EXAMINATION: Negative. The patient is awake, alert, oriented and appropriate. NECK: Supple. HEART: Heart sounds S1, S2; irregular rhythm, normal rate. LUNGS: Clear to anterior auscultation. There are no wheezes, rhonchi or rales. Voice quality is good. The patient is not clinically dyspneic. ABDOMEN: Belly is obese, soft and nontender. No mass, no organomegaly. EXTREMITIES: Unremarkable. LABORATORY DATA: White count is 16,000, hemoglobin 7.4, hematocrit 22.9 and platelet 180,000. The electrolytes are normal. BUN 47 and creatinine 1.3. Liver function tests are normal. The troponin is normal. The BNP is 3920. The chest x-ray shows right and left lower lobe atelectasis or infiltrates, improved since she was last in the hospital. Blood cultures x 2 are negative. Urine culture shows E. coli, which is resistant to ampicillin, Cipro, trimethoprim and sulfamethoxazole and this was with ampicillin and vancomycin-resistant Enterococcus. SUMMARY: In summary, the patient who is recovering from pneumonia and develops increased chest pain associated with symptomatic bradycardia. Her radiograph actually shows improvement and with her heart rhythm back to normal, it appears that her respiratory symptoms are pretty much resolving. She does have asymptomatic bacteriuria with VRE and E. coli. I suggest we continue the cefepime for the pneumonia. When the patient is discharged, she can go back to Levaquin 500 mg every 48 hours for another 7-10 days with followup chest x-ray. I do not think the asymptomatic bacteriuria requires treatment at this time, and the patient will need isolation because of the presence of VRE, but there [place] [address] HISTORY AND PHYSICAL Name: AMNA ARROYO Room: [address]#: [id number] Admission: 07/17/17 Attend Phys: Nkechi Jerez Discharge: 07/22/17 Date of : [birth year] Report #: [id number] have stopped the nitrofurantoin. The patient does have a significant anemia. She has significant heart failure. These may benefit from treatment, particularly if the family wants aggressive care rather than this comfort care. They are hoping the patient can return to her previous level of functioning to go home independently after rehabilitation. I appreciate the opportunity of inputs in the care of the patient. Dr. Garibay will return on Friday for additional followup. <ELECTRONICALLY SIGNED> By: Damian Wilson MD 08/09/17 0935 0919 1030Joyosvany Wilson MD /nt
== END 2017-07-22 14:25 | DRG 871 ==
LOC: M.ERS 14:15 → M.TBA-ER 15:45 → M.ICU 15:45 → M.3W 07-18 12:24
PROVIDERS: Emergency Medicine Emergency Medical Services; Internal Medicine; ADMIT Internal Medicine
PROC: 30233N1 Transfusion of Nonautologous Red Blood Cells into Peripheral Vein, Percutaneous Approach (ICD-10-PCS; principal; 2017-07-21)
DX: A41.9 Sepsis, unspecified organism (principal); N17.0 Acute kidney failure with tubular necrosis; J18.9 Pneumonia, unspecified organism; I50.22 Chronic systolic (congestive) heart failure; J96.11 Chronic respiratory failure with hypoxia; N39.0 Urinary tract infection, site not specified; E44.0 Moderate protein-calorie malnutrition; J44.0 Chronic obstructive pulmonary disease with (acute) lower respiratory infection; R65.20 Severe sepsis without septic shock; E11.9 Type 2 diabetes mellitus without complications; E78.5 Hyperlipidemia, unspecified; E03.9 Hypothyroidism, unspecified; I48.0 Paroxysmal atrial fibrillation; K21.9 Gastro-esophageal reflux disease without esophagitis; I49.5 Sick sinus syndrome; D50.9 Iron deficiency anemia, unspecified; I11.0 Hypertensive heart disease with heart failure; I25.10 Atherosclerotic heart disease of native coronary artery without angina pectoris; Z95.5 Presence of coronary angioplasty implant and graft; I25.2 Old myocardial infarction; Z90.49 Acquired absence of other specified parts of digestive tract; Z98.42 Cataract extraction status, left eye; Z98.41 Cataract extraction status, right eye; Z88.0 Allergy status to penicillin; Z88.2 Allergy status to sulfonamides; Z87.891 Personal history of nicotine dependence; Z68.25 Body mass index [BMI] 25.0-25.9, adult; Z79.82 Long term (current) use of aspirin; Z79.899 Other long term (current) drug therapy

== ENCOUNTER → 2017-07-25 | Outpatient (CLI) | payer OTHER ==
[~2017-07-25] MED LIST changes: +ATIVAN0.5 MG PO; +CEFUROXIME500 MG PO; +DULCOLAX5 MG PO; +EAR WAX REMOVAL15 ML OTIC; +JUVEN PACKET1 EAC1 PO; +MELATONIN1 MG PO; +MILK OF MA2400 MG/10 PO; +MIRALAX17 GM PO; +MSL20MG/ML PO; +NORCO 5-325 TA1 EACH PO; +PREDNISONE 20 M20 M1 PO; +TUMS PO; +XANAX 0.25 MG0.25 MG PO; +ZPAK PO
== END ==
LOC: M.WC 09:00
DX: E11.622 Type 2 diabetes mellitus with other skin ulcer (principal); I87.313 Chronic venous hypertension (idiopathic) with ulcer of bilateral lower extremity; L97.821 Non-pressure chronic ulcer of other part of left lower leg limited to breakdown of skin; L97.811 Non-pressure chronic ulcer of other part of right lower leg limited to breakdown of skin; I89.0 Lymphedema, not elsewhere classified; E11.22 Type 2 diabetes mellitus with diabetic chronic kidney disease; I12.0 Hypertensive chronic kidney disease with stage 5 chronic kidney disease or end stage renal disease; N18.6 End stage renal disease; I50.22 Chronic systolic (congestive) heart failure; I25.10 Atherosclerotic heart disease of native coronary artery without angina pectoris; I48.2 Chronic atrial fibrillation; L84 Corns and callosities; I25.2 Old myocardial infarction; I87.2 Venous insufficiency (chronic) (peripheral); E78.2 Mixed hyperlipidemia; E03.8 Other specified hypothyroidism; J44.9 Chronic obstructive pulmonary disease, unspecified; Z87.891 Personal history of nicotine dependence; Z68.24 Body mass index [BMI] 24.0-24.9, adult

== ENCOUNTER → 2017-07-31 | Outpatient (CLI) | payer OTHER | LOC: M.WC 03:55 | DX: E11.621 Type 2 diabetes mellitus with foot ulcer (principal); I87.313 Chronic venous hypertension (idiopathic) with ulcer of bilateral lower extremity; L97.811 Non-pressure chronic ulcer of other part of right lower leg limited to breakdown of skin; L97.821 Non-pressure chronic ulcer of other part of left lower leg limited to breakdown of skin; E11.65 Type 2 diabetes mellitus with hyperglycemia; I11.0 Hypertensive heart disease with heart failure; I50.22 Chronic systolic (congestive) heart failure; I25.2 Old myocardial infarction; I25.10 Atherosclerotic heart disease of native coronary artery without angina pectoris; I89.0 Lymphedema, not elsewhere classified; I48.2 Chronic atrial fibrillation; E78.2 Mixed hyperlipidemia; E03.8 Other specified hypothyroidism; J44.9 Chronic obstructive pulmonary disease, unspecified; Z87.891 Personal history of nicotine dependence; Z68.24 Body mass index [BMI] 24.0-24.9, adult ==

== ENCOUNTER → 2017-08-08 | Outpatient (CLI) | payer OTHER | LOC: M.WC 02:09 | DX: I87.313 Chronic venous hypertension (idiopathic) with ulcer of bilateral lower extremity (principal); L97.811 Non-pressure chronic ulcer of other part of right lower leg limited to breakdown of skin; L97.821 Non-pressure chronic ulcer of other part of left lower leg limited to breakdown of skin; I89.0 Lymphedema, not elsewhere classified; I11.0 Hypertensive heart disease with heart failure; I50.22 Chronic systolic (congestive) heart failure; I48.2 Chronic atrial fibrillation; I25.10 Atherosclerotic heart disease of native coronary artery without angina pectoris; J44.9 Chronic obstructive pulmonary disease, unspecified; E78.2 Mixed hyperlipidemia; E03.9 Hypothyroidism, unspecified; Z68.24 Body mass index [BMI] 24.0-24.9, adult; I25.2 Old myocardial infarction; E78.5 Hyperlipidemia, unspecified; Z87.891 Personal history of nicotine dependence ==

== ENCOUNTER → 2017-08-15 | Outpatient (CLI) | payer OTHER | LOC: M.WC 01:02 | DX: I87.313 Chronic venous hypertension (idiopathic) with ulcer of bilateral lower extremity (principal); L97.811 Non-pressure chronic ulcer of other part of right lower leg limited to breakdown of skin; L97.821 Non-pressure chronic ulcer of other part of left lower leg limited to breakdown of skin; I89.0 Lymphedema, not elsewhere classified; I11.0 Hypertensive heart disease with heart failure; I50.22 Chronic systolic (congestive) heart failure; I25.10 Atherosclerotic heart disease of native coronary artery without angina pectoris; I48.2 Chronic atrial fibrillation; J44.9 Chronic obstructive pulmonary disease, unspecified; I73.9 Peripheral vascular disease, unspecified; E78.2 Mixed hyperlipidemia; E03.8 Other specified hypothyroidism; Z68.24 Body mass index [BMI] 24.0-24.9, adult; I25.2 Old myocardial infarction; Z87.891 Personal history of nicotine dependence ==

== ENCOUNTER → 2017-08-21 | Outpatient (CLI) | payer OTHER | LOC: M.WC 01:33 | DX: I89.0 Lymphedema, not elsewhere classified (principal); E11.65 Type 2 diabetes mellitus with hyperglycemia; L84 Corns and callosities; I11.0 Hypertensive heart disease with heart failure; I50.22 Chronic systolic (congestive) heart failure; I25.10 Atherosclerotic heart disease of native coronary artery without angina pectoris; I25.2 Old myocardial infarction; E78.2 Mixed hyperlipidemia; E03.8 Other specified hypothyroidism; J44.9 Chronic obstructive pulmonary disease, unspecified; Z68.24 Body mass index [BMI] 24.0-24.9, adult; Z87.891 Personal history of nicotine dependence ==

== ENCOUNTER 2017-08-22 09:28 | Inpatient (IN) | payer OTHER ==
[~2017-08-22] VITALS: Ht 162.6 cm; Wt 54.0 kg
[~2017-08-22 09:28] MED LIST changes: -ATIVAN0.5 MG PO; -DULCOLAX5 MG PO; -EAR WAX REMOVAL15 ML OTIC; -JUVEN PACKET1 EAC1 PO; -MELATONIN1 MG PO; -MILK OF MA2400 MG/10 PO; -MSL20MG/ML PO; -TUMS PO; -ZPAK PO
[2017-08-22 09:32] VITALS: BP 148/79
[2017-08-22] MEDS ORDERED: DULCOLAX5 MG PO (09:46)
[2017-08-22] MEDS ORDERED: JUVEN PACKET1 EAC1 PO (09:46)
[2017-08-22 09:47] LABS: HEMOGLOBIN 10.8 gm/dL (12.0-15.0); MCH 26.5 pg (26.0-34.0); MCHC 31.6 g/dL (28.0-37.0); MCV 83.7 fL (80.0-100.0); NUCLEATED RBCS 0 /100WBC; PLATELET COUNT* 344 thou/uL (150-400); RBC 4.06 mil/uL (4.20-5.00); WBC 14.5 thou/uL (4.0-11.0)
[2017-08-22] MEDS ORDERED: MELATONIN1 MG PO (09:50)
[2017-08-22] MEDS ORDERED: ZPAK PO (09:50)
[2017-08-22] MEDS ORDERED: MILK OF MA2400 MG/10 PO (09:50)
[2017-08-22] MEDS ORDERED: TUMS PO (09:50)
[2017-08-22 09:55] LABS: CALCIUM 9.6 mg/dL (8.5-10.1); CREATININE 0.7 mg/dL (0.6-1.3); POTASSIUM 4.6 mmol/L (3.5-5.1)
[2017-08-22 09:57] LABS: BE 12.7 mmol/L (-2 to +3); HCO3 40.4 mmol/L (22.0-26.0); PCO2 71.9 mmHg (35.0-45.0); PO2 72.2 mmHg (75.0-100.0); pH 7.367 (7.340-7.450)
[2017-08-22 10:02] LABS: APTT 21.4 Seconds (25.0-31.3); PROTIME 9.4 Seconds (9.20-11.50)
[2017-08-22 10:06] LABS: ALBUMIN 3.7 g/dL (3.4-5.0); TOTAL BILIRUBIN 0.6 mg/dL (<0.1-1.0); TROPONIN-I LEVEL 0.12 ng/mL (<0.06)
[2017-08-22 10:45] LABS: ABSOLUTE LYMPHOCYTES 0.6 thou/uL (0.8-5.3); ABSOLUTE MONOCYTES 0.3 thou/uL (0.0-1.2); ABSOLUTE NEUTROPHILS 13.6 thou/uL (1.6-8.1); ANISOCYTOSIS 1+; PLATELET ESTIMATE ADEQUATE; POIKILOCYTOSIS 1+
[2017-08-22 12:11] LABS: BE 14.6 mmol/L (-2 to +3); PO2 67.6 mmHg (75.0-100.0)
[2017-08-22 12:15] LABS: PCO2 64.9 mmHg (35.0-45.0)
[2017-08-22 12:16] LABS: HCO3 41.2 mmol/L (22.0-26.0)
--- NOTE | 2017-08-22 14:29 | EKG ---
[place] [address] ELECTROCARDIOGRAM REPORT Name: AMNA DUENAS Room: [place] [id number] ADM IN [facility].#: [id number] Admission: 08/22/17 Attend Phys: Dru Bull, Discharge: Date of : [birth year] Report #: [id number] THIS REPORT FOR: //name// [facility] ED Test Date: 2017-08-22 Test Time: 09:43:12 Pat Name: AMNA DUENAS Department: Room: [facility] Gender: F Fabric Cutter: Shiv GARZA : 1930 Requested By: Bridger Martinez Order Number: [id number] MD: Sammy Barrios Measurements Intervals Lloyd Rate: 70 P: -84 WI: 124 QRS: -9 QRSD: 96 T: 82 QT: 421 QTc: 455 Interpretive Statements nsr LVH with secondary repolarization abnormality Compared to ECG 07/20/2017 17:59:51 Ectopic atrial rhythm now present Sinus rhythm no longer present Left bundle-branch block no longer present Electronically Signed On 08-22-2017 14:29:37 CDT by Sammy Barrios [email or web address] <ELECTRONICALLY SIGNED> By: Sammy Barrios MD, [facility] 08/22/17 1429 [id number] [id number] Sammy Barrios MD, FAC /EPI
--- NOTE | 2017-08-22 15:00 | NUR ---
RECEIVED ORDER THAT SON/HERB WHO IS DPOA WANTED TO TALK WITH [facility]. CALL TO [facility]. SHE STATED THAT NOW SINCE PT LIVES AT THE [facility], THEY CANNOT SEE PT THERE, NO CONTRACT. CALL TO THE [facility]. SHE CONFIRMED THAT THEIR H[facility]ICE, [facility] HAS TO SEE PT SINCE SHE LIVES IN THEIR SENIOR CARE. [facility] DID STATE THEY WOULD HAVE LTC AT THE [facility] IF PT NEEDS TO RETURN TO THAT LEVEL OF CARE INSTEAD OF HER SENIOR CARE. WENT TO ER WHERE PT IS STILL IN ROOM 17 TO DISCUSS WITH SON, HE WAS GONE. CALLED HIM AT [phone], DISCUSSED SITUATION, HE IS HAPPY TO MEET WITH [facility]. CALL TO [facility], SPOKE WITH SHAYY AND GAVE INFO AND SON'S NUMBER. THEY WILL CONTACT SON TO MEET TODAY. FAXED REFERRAL TO HER [facility] [phone] FAX [phone]
[2017-08-22 15:53] VITALS: BP 164/64
[2017-08-22 16:28] VITALS: BP 184/92
[2017-08-22 20:00] VITALS: BP 188/83
[2017-08-23] VITALS (8 sets, daily range): BP systolic 105–186; BP diastolic 43–92
--- NOTE | 2017-08-23 06:46 | NUR ---
ASSUMED CARE OF PATIENT AT 1900 THE PATIENT REMAINS SR ON THE MONITOR O2 SAT MAINTAINED ON VENTI MASK AT 50% RT MANAGING THE PATIENT CONTINUES BEDREST UP BEDPAN UTILIZED FOR VOIDING NEEDS OF TO THE ROUTINE ET PRN REGIMEN CONTINUES TO BE PARTIALLY EFFECTIVE FOR SX MANAGEMENT IN AM REQUEST FOR ANXIETY RELIEF INCREASED IN FREQUENCY PLAN TO FOLLOW UP WITH PHYSICIAN JOB MORGAN X1 FOR AIR HUNGER SAFETY INTERVENTIONS CONTINUE BED LOWERED WHEELS LOCKED CALL LIGHT IN REACH SIDE RAILS UP REPORT TO BE GIVEN TO ONCOMING RN
--- NOTE | 2017-08-23 12:09 | NUR ---
ASSUMED PT CARE AT 0700 PT IS ALERT AND ORIENTED X 4 PT IS A FALL RISK BED ALARM IS ON PT SHOWS NO SIGNS OF PAIN PT C/I SOA CHANGED VENTI MASK WHICH PT STATES HELPS PT USES HIFLOW CANNULA WHILE EATING, PT CALLED OUT PT IS ANXIOUS GAVE ATIVAN REASSESSED PT IS MORE CALM, PT IS Q 2 TURN, PT IS SR ON THE MONITOR, WILL CONTINUE TO MONITOR
[2017-08-24 03:59] VITALS: BP 169/78
[2017-08-24 04:49] LABS: HEMOGLOBIN 9.5 gm/dL (12.0-15.0); MCH 26.4 pg (26.0-34.0); MCHC 31.6 g/dL (28.0-37.0); MCV 83.6 fL (80.0-100.0); MPV 7.1 fl. (7.2-11.1); RBC 3.58 mil/uL (4.20-5.00); RDW-CV 14.8 % (10.5-14.5); WBC 9.5 thou/uL (4.0-11.0)
[2017-08-24 05:10] LABS: CALCIUM 8.8 mg/dL (8.5-10.1); CREATININE 0.7 mg/dL (0.6-1.3); MAGNESIUM 2.1 mg/dL (1.8-2.4); POTASSIUM 4.3 mmol/L (3.5-5.1)
--- NOTE | 2017-08-24 05:13 | NUR ---
RECIEVED REPORT AT 1930. ASSESSMENT COMPLETED CHARTED. ABLE TO MAKE NEEDS KNOWN, CALL LIGHT WITHIN REACH, PT RESTING AT THIS TIME. NO C/O PAIN AT THIS TIME. TROUBLE BREATHING AT TIMES TONIGHT, GAVE 1 DOSE OF ATIVAN AND 1 DOSE OF MORPHINE THIS SHIFT. CONTINUING WITH PLAN OF CARE.
[2017-08-24 08:30] VITALS: BP 134/65
[2017-08-24 12:01] VITALS: BP 162/63
[2017-08-24 16:00] VITALS: BP 162/68
--- NOTE | 2017-08-24 18:44 | NUR ---
ASSUMED PT CARE AT 0730, FULL ASSESMENT DONE CHARTED. PT A/O X4, IS TEARFUL THIS AM, C/O HERMOSILLO PAIN. PT GIVEN MORPHINE AND LORAZEPAM PRN. PTS FAMILY IN TO VISIT, PT APPEARS TO FEEL BETTER, SHE IS RESTING COMFORTABLY IN BED. ATTEMPTED MULTIPLE TIMES TO TURN PT, PT TAKES WEDGES OUT SOON AFTER TURNING HER. PTS BOTTOM PINK/BLANCHABLE, PT EDUCATED ON IMPORTANCE OF TURNING. NEW IV STARTED ON PTS LEFT AC. PT USES CALL LIGHT APPROPRIALTY FOR NEEDS. FALL PRECAUTIONS IN PLACE. WILL CONTINUE TO MONITOR.
[2017-08-24 19:30] VITALS: BP 155/66
[2017-08-25 00:07] VITALS: BP 150/52
--- NOTE | 2017-08-25 01:10 | NUR ---
ASSUMED CARE OF PT AT 1900. PT IS ALERT AND ORIENTED. VSS. PERRLA. PT REPORTS ANXIETY AND AIR HUNGER AT TIMES. PT RECIEVING ATIVAN PRN. PT IS VERY WEAK. LUNGS SOUNDS ARE RHONCHI AND INSPIRATORY AND EXPIRATORY WHEEZES. PT IS BEING TURNED EVERY 2 HOURS. PT IS VICENTE IGLESIAS ON THE TELEMETRY. PT IS RESTING COMFORTABLY IN BED. RESPIRATIONS ARE EVEN AND NONLABORED. WILL CONTINUE TO MONITOR PT.
[2017-08-25 04:12] VITALS: BP 106/49
[2017-08-25 08:00] VITALS: BP 175/78
--- NOTE | 2017-08-25 09:53 | CON ---
[address] [address] CONSULTATION Name: AMNA DUENAS Room: [address] IN .R.#: [id number] Admission: 08/22/17 Attend Phys: Dru Bull, Discharge: Date of : [birth year] Report #: [id number] THIS REPORT FOR: //name// CC: Emerita Bull REASON FOR CONSULTATION: Acute respiratory failure. HISTORY OF PRESENT ILLNESS: This is an 87-year-old female patient who has history of smoking in the past, although she quit. She has history of COPD. She is on oxygen at 3 liters per minute at home since 03/2017. She presented to the hospital with shortness of breath, worsening of 2 days' duration, associated with cough and sputum production. She could not tell me how much sputum production she had and what color she noticed. Apparently, she was diagnosed at the senior care with pulmonary infiltrates. Her O2 sats upon presentation by EMS was 71% on 5 liter oxygen. She denied any fever or chills. She denied any headache or blurring of vision. She reported that she has wheezes. She denied any abdominal pain, nausea or vomiting, sick contact. She reported some lower extremity edema and actually her lower extremities are wrapped. ALLERGIES: PENICILLIN AND SULFA. HOME MEDICATIONS: She is on atorvastatin, metformin, aspirin, nitroglycerin, guaifenesin. She is on albuterol, enalapril, montelukast, amiodarone, azithromycin and melatonin. PAST MEDICAL HISTORY: She has coronary artery disease, status post stent. She had a history of COPD, diabetes mellitus, diverticulosis, hyperlipidemia, hypertension, gastroesophageal reflux disease, C. diff colitis, atrial fibrillation, bilateral leg wounds bradycardia, venous insufficiency, hypothyroidism, CHF, coronary artery disease. SOCIAL HISTORY: Ex-smoker, quit more than one year ago, but she reported that she smoked for a long time. Does not drink alcohol excessively, does not abuse drugs. REVIEW OF SYSTEMS: She denied cough, choking with meals or dysphagia. The 14-point system reviewed and negative other than as mentioned above. PHYSICAL EXAMINATION: VITAL SIGNS: On examination, she is on Ventimask at 50%, O2 saturation more than 90%, blood pressure 168/81, breathing 22 times a minute, pulse rate of 79, temperature 36.3. GENERAL: Elderly lady, awake, alert, oriented, not in distress, speaks in full sentences, hard of hearing. HEENT: Head is normocephalic, atraumatic. Pupils equal, reactive to light. Extraocular muscles intact[place] [address] CONSULTATION Name: AMNA DUENAS Room: [address] IN M.R.#: [id number] Admission: 08/22/17 Attend Phys: Dru Bull, Discharge: Date of : [birth year] Report #: [id number] NECK: Supple, no palpable lymph node, no palpable thyroid. Trachea is central. CHEST: Diminished air movement bilaterally with prolonged expiratory phase. Extensive wheezes heard bilaterally. ABDOMEN: Benign, soft, lax, nontender. LOWER EXTREMITIES: Wrapped, I did not disturb the dressing. No tenderness on the calf area palpation. PSYCHIATRIC: Mood and affect appropriate, slightly anxious. Good insight and judgment. NEUROLOGIC: Moving 4 extremities spontaneously. No focal weakness. Cranial nerves grossly normal. SKIN: Normal for age and race, no rash. I did not again disturb the lower extremity wrapped area. LABORATORY DATA: Her chest x-ray showed right lower lobe infiltrate. Her white blood count upon presentation 14.5, hemoglobin 10.8, platelet of 344. ABG, 7.42/64/67 on the 50% FiO2, with a creatinine of 0.7, BUN of 38 and BNP was elevated. IMPRESSION: 1. Acute hypoxic and hypercapnic respiratory failure on chronic. 2. Chronic obstructive pulmonary disease exacerbation. 3. Pneumonia. 4. Concerns about dysphagia with recurrent pneumonia. At this point, continue antibiotics, wean oxygen down, schedule nebulization treatment. I will start on steroids for the COPD exacerbation. I did consult Speech Pathology for further evaluation. Meanwhile, continue montelukast and wean oxygen as needed. Continue aspiration precautions. Thank you for the consult. We will follow along with you. We will order chest x-ray on 08/25/2017. <ELECTRONICALLY SIGNED> By: Jeffry Miguel MD 08/25/17 0953 [id number] Peguero MD /nt
[2017-08-25 12:07] VITALS: BP 165/66
--- NOTE | 2017-08-25 13:42 | NUR ---
ASSUMED CARE OF PATIENT THIS AT 0730. PATIENT IS A & O X 3 THIS AM. SHE WAS REORIENTED TO TIME. PATIENT WAS WANTING TO GET CLEANED UP EARLY THIS AM. HER WAS IN THE ROOM LYING ON THE COT. PATIENT LUISA THIS AM TO HELP THE PATIENT WITH HER BREAKFAST TRAY AND HE BECAME DIZZY AND PASSED OUT ON THE FLOOR. LICENSED SURVEYOR NOTIFIED AND THE PATIENT'S WAS TAKEN DOWN TO THE ER PER CART. PATIENT ASSISTED UP TO THE CHAIR. SHE REMAINED UP TO THE CHAIR UNTIL AFTER LUNCH THEN PATIENT ASSISTED BACK TO THE BED. PATIENT ABLE TO TRANSFER WITH 2 PERSON ASSIST AND A GAIT BELT. PATIENT MEDICATED FOR ANXIETY X 1. SHE IS RESTING AT THIS TIME. TELE SHOWS NSR IN THE 70S. SIDERAIL ARE UP AND CALL LIGHT IS IN REACH. BED ALARM IS ON. PATIENTS HAS RETURNED TO THE ROOM AND IS SITTING AT THE SIDE OF THE BED. PATIENT'S SON IS PRESENT. RAILROAD CAR REPAIRMAN NOTIFIED TO CONSULT WITH FAMILY.
[2017-08-25 15:15] VITALS: BP 176/78
[2017-08-25 20:00] VITALS: BP 158/65
[2017-08-26] VITALS: BP 158/56
--- NOTE | 2017-08-26 03:23 | NUR ---
ASSUMED PT CARE AT 19:15. PT IS ALERT, AWAKE, ORIENTED X 4. LAYIN IN BED WITH SON AND AT BEDSIDE. APPEARS SOA WIHT 3 L NC. O2 SATURATION 100 ON RA. HEAD OF BED ELEVATED TO MAINTAIN AIRWAY. ASESSMENT PERFOREMD AT BED SIDE. REFER TO CHART EDEMA +3 NOTED IN BILATERAL FEET. AND SPLINTS ARE WRAPPED AROUND LOWER EXTREMITIES. PT COMPLAIN OF PAIN LEVEL OF 7 IN THE BACK. MORPHINE WAS ADMINISTERED. PT IS NOW SLEEPING. ALSO RECEIVED ATIVAN FOR ANXITY FEELINGS. SINUS RYTHM ON THE MONITOR. RECENT CHEST X RAY RESLUT COMMUNICATED TO PT AND SON. WILL CONTINUE TO MONITOR
[2017-08-26 04:00] VITALS: BP 171/66
[2017-08-26 04:20] LABS: BE 12.8 mmol/L (-2 to +3); PO2 96.3 mmHg (75.0-100.0); pH 7.364 (7.340-7.450)
[2017-08-26 04:24] LABS: HCO3 40.1 mmol/L (22.0-26.0)
[2017-08-26 05:25] LABS: HEMATOCRIT 25.6 % (37.0-47.0); HEMOGLOBIN 8.4 gm/dL (12.0-15.0); MCH 27.3 pg (26.0-34.0); MCHC 32.9 g/dL (28.0-37.0); MCV 82.7 fL (80.0-100.0); MPV 7.1 fl. (7.2-11.1); RBC 3.09 mil/uL (4.20-5.00); RDW-CV 14.9 % (10.5-14.5); WBC 9.4 thou/uL (4.0-11.0)
[2017-08-26 05:45] LABS: CALCIUM 8.5 mg/dL (8.5-10.1); CREATININE 0.9 mg/dL (0.6-1.3); POTASSIUM 4.7 mmol/L (3.5-5.1)
[2017-08-26 08:13] VITALS: BP 164/68
--- NOTE | 2017-08-26 09:32 | NUR ---
ASSUMED CARE OF PATIENT AFTER REPORT THIS MORNING. PATIENT AWAKE, ALERT, AND ORIENTED APPROPRIATELY. PHYSICAL ASSESSMENT COMPLETED AND CHARTED. COMPLAINED OF HEADACHE. GIVEN SCHEDULED MEDICATIONS, SEE EMAR FOR DOCUMENTATION. VITAL SIGNS STABLE. OXYGEN SATURATION WITHIN NORMAL LIMITS ON 3 LPM PER NASAL CANULA. PATIENT TRANSFERS AND AMBULATES WITH ASSISTANCE FROM STAFF. USES CALL LIGHT APPROPRIATELY. DENIES NEEDS AT THIS TIME. CALL LIGHT WITHIN REACH. NURSING WILL CONTINUE TO MONITOR.
--- NOTE | 2017-08-26 10:48 | NUR ---
Faxed hospice eval and treat order to [facility] per son's request. p:[phone] f:[phone]
[2017-08-26 11:56] VITALS: BP 164/74
[2017-08-26 15:39] VITALS: BP 152/68
--- NOTE | 2017-08-26 17:21 | NUR ---
PATIENT REMAINS ALERT AND ORIENTED APPROPRIATELY. RECEIVED PRN MEDICATIONS THIS AFTERNOON FOR PAIN AND ANXIETY, SEE EMAR FOR DOCUMENTATION, EFFECTIVE. PATIENT WAS UP IN CHAIR FOR BREAKFAST AND LUNCH. USED BEDSIDE COMMODE TODAY WITH ASSISTANCE FROM ONE STAFF MEMBER. DENIES NEEDS AT THIS TIME. CALL LIGHT WITHIN REACH. NURSING WILL CONTINUE TO MONITOR.
[2017-08-26 23:54] VITALS: BP 119/55
--- NOTE | 2017-08-27 02:21 | NUR ---
RECIEVED REPORT AND ASSUMED CARE OF PATIENT AT 1930. COOKIE BREAKER IN PLACE TRACING SR. ASSESSMENT AND VITALS COMPLETED, VSS. PATIENT A&OX4. PATIENT ANXIOUS AND HAS FREQUENT NEEDS, USING CALL LIGHT APPROPRIATELY. PATIENT PROVIDED WITH LORAZEPAM PER EMAR. PATIENT ON 3L O2 NC WITH SATS >92%. PATIENT IS SHORT OF AIR ON ANY EXERTION AND BREATH SOUNDS ARE COARSE WITH WHEEZES. PATIENT HAS C/O GENERALIZED PAIN, ORAL MORPHINE ADMINISTERED PER EMAR WITH SLIGHT RELIEF. PATIENT BEING REPOSITIONED Q2H. GOAL IS IMPROVEMENT IN PAIN AND SHORTNESS OF AIR WITH MEDICATION ADMINISTRATION AND FOR PATIENT TO REST COMFORTABLY. CALL LIGHT WITHIN REACH
[2017-08-27 04:23] VITALS: BP 154/64
--- NOTE | 2017-08-27 05:38 | NUR ---
PATIENT NOT PROGRESSING TOWARDS GOALS: PATIENT REMAINS SHORT OF AIR AND CALLING OUT FREQUENTLY FOR ANXIETY AND PAIN MEDICATION. PATIENT STATES THE "MORHPINE DOES NOT SEEM TO HELP" HOWEVER, PATIENT CONTINUES TO REQUEST MEDICATION. PATIENT PROVIDED WITH REASSURANCE AND ENCOURAGED TO REPOSITION FOR COMFORT. HOURLY ROUNDING OBSERVED. CALL LIGHT WITHIN REACH
[2017-08-27 08:08] VITALS: BP 163/65
--- NOTE | 2017-08-27 10:48 | NUR ---
ASSUMED CARE OF PATIENT THIS AM AT 0730. PATIENT IS ALERT AND ORIENTED X 4. SHE HAS HAD NO C/O PAIN SO FAR TODAY. PATIENT ASSISTED UP TO THE CHAIR WITH 2 PERSON ASSIST. SHE WAS ABLE TO FEED HERSELF WITHOUT DIFFICULTY. TELE SHOWS SR. PLANS FOR DISCHARGE TODAY. PATIENT'S SON ANTICIPATES TAKING HER HOME. PATIENT REMAINS ON O2 AT 3 LITERS. BILATERAL VENOUS STASIS WRAPS ON AND INTACT. NO FALLS OR INJURY.
[2017-08-27 11:41] VITALS: BP 164/54
[2017-08-27] MEDS ORDERED: ATIVAN0.5 MG PO ×2 (13:24→14:14)
[2017-08-27] MEDS ORDERED: MSL20MG/ML PO (14:12)
[2017-08-27] MEDS ORDERED: EAR WAX REMOVAL15 ML OTIC (14:19)
[2017-08-27] MEDS ORDERED: LEVAQUIN 750 M750 MG PO (14:21)
[2017-08-27] MEDS ORDERED: LEVAQUIN 250 M250 MG PO (14:52)
[2017-08-27 14:54] VITALS: BP 164/54
== END 2017-08-27 16:00 | disposition hospice, home (50) | DRG 177 ==
LOC: M.ERS 09:28 → M.TBA-ER 10:45 → M.2W 10:45
PROVIDERS: Emergency Medicine; Internal Medicine; Internal Medicine Pulmonary Disease; ADMIT Family Medicine
DX: J15.212 Pneumonia due to Methicillin resistant Staphylococcus aureus (principal); J96.21 Acute and chronic respiratory failure with hypoxia; J96.22 Acute and chronic respiratory failure with hypercapnia; J44.0 Chronic obstructive pulmonary disease with (acute) lower respiratory infection; J44.1 Chronic obstructive pulmonary disease with (acute) exacerbation; E11.9 Type 2 diabetes mellitus without complications; K21.9 Gastro-esophageal reflux disease without esophagitis; I48.91 Unspecified atrial fibrillation; I25.10 Atherosclerotic heart disease of native coronary artery without angina pectoris; K57.90 Diverticulosis of intestine, part unspecified, without perforation or abscess without bleeding; E03.9 Hypothyroidism, unspecified; I50.9 Heart failure, unspecified; E78.00 Pure hypercholesterolemia, unspecified; I11.0 Hypertensive heart disease with heart failure; Z66 Do not resuscitate; Z95.5 Presence of coronary angioplasty implant and graft; I25.2 Old myocardial infarction; Z79.899 Other long term (current) drug therapy; Z79.82 Long term (current) use of aspirin; Z79.84 Long term (current) use of oral hypoglycemic drugs; Z88.0 Allergy status to penicillin; Z88.2 Allergy status to sulfonamides; Z87.891 Personal history of nicotine dependence